=== PATIENT | female | born 1990 | race Caucasian/White ===

== ENCOUNTER 2018-08-18 00:20 | Emergency (ER) | payer OTHER ==
[2018-08-18] MEDS ORDERED: LIDOCAINE 1% MPF 5 ML VIAL ONE (01:24)
--- NOTE | 2018-08-18 04:26 | EDPHYS ---
Physician Documentation [facility] Name: Ayanna Pierre Age: 28 yrs Sex: Female : 1990 Arrival Date: 08/18/2018 Time: 00:26 Bed 15 Private MD: Marta Cooper K ED Physician Anatoliy Delgado HPI: 08/18 01:57 This 28 yrs old Female presents to ER via Ambulatory with complaints of rn abscess. 01:57 The patient presents with an abscess of the right axilla. Description: erythematous, rn swollen, warm. Onset: The symptoms/episode began/occurred 3 day(s) ago. Possible cause(s): unknown. Severity of symptoms: At their worst the symptoms were moderate, in the emergency department the symptoms are unchanged. The patient has not experienced similar symptoms in the past. The patient has not recently seen a physician. 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 - Social history:: Smoking status: Patient uses tobacco products, smokes one pack cigarettes per day. - Ebola Screening: : No symptoms or risks identified at this time. - Family history:: not pertinent. - Hospitalizations: : No recent hospitalization is reported. ROS: 01:57 Constitutional: Negative for fever, chills, and weight loss, Skin: + right axilla rn abscess Exam: 01:57 Constitutional: This is a well developed, well nourished patient who is awake, alert, rn and in no acute distress. Skin: Warm, dry, right axilla with a few small pustules, + central 2cm area of fluctuance and tenderness Vital Signs: 00:45 BP 116 / 73; Pulse 87; Resp 18; Temp 98.1; Pulse Ox 100% on R/A; Weight 54.43 kg (R); ak1 Height 5 ft. 5 in. (165.10 cm) (R); Pain 10/10; 01:50 BP 120 / 60; Pulse 78; Resp 18; Temp 97.2(O); Pulse Ox 99% on R/A; ea 00:45 Body Mass Index 19.97 (54.43 kg, 165.10 cm) ak1 Procedures: 01:57 I \T\ D: Incision and drainage was performed for an abscess of the right axilla. Prepped rn with Betadine, Anesthetized with 5 ml's 1% Lidocaine w/ Epi. Incised with #11 blade. Drained moderate amount purulent fluid. Packed with iodoform gauze, Dressing: sterile 4x4 gauze, the patient tolerated the procedure well. MDM: 00:55 Patient medically screened. rn 01:57 Differential diagnosis: abscess. Data reviewed: vital signs, nurses notes, and as a rn result, I will discharge patient. Counseling: I had a detailed discussion with the patient and/or guardian regarding: the historical points, exam findings, and any diagnostic results supporting the discharge/admit diagnosis, the need for outpatient follow up, to return to the emergency department if symptoms worsen or persist or if there are any questions or concerns that arise at home. Response to treatment: the patient's symptoms have mildly improved after treatment, and as a result, I will discharge patient. Special discussion: I discussed with the patient/guardian in detail that at this point there is no indication for admission to the hospital. It is understood, however, that if the symptoms persist or worsen the patient needs to return immediately for re-evaluation. 01:57 ED course: Instructions given about packing changes, abx given here since pharmacy rn closed.. 08/18 01:00 Order name: Incision \T\ Drainage Setup; Complete Time: :19 rn Administered Medications: Drug: [place] 10 mg-325 mg 1 tabs Route: PO; ea 02:03 Follow up: Response: No adverse reaction; Pain is decreased ea 01:43 Drug: Lidocaine (1 %) 1 vials {Note: medication adminitered by provider.} Volume: 5 ml; ea Route: Infiltration; 02:03 Follow up: Response: No adverse reaction ea 02:12 Drug: Clindamycin 300 mg Route: PO; ea 02:12 Follow up: Response: Medication administered at discharge. ea Disposition: 08/18/18 02:00 Discharged to Home. Impression: Cutaneous abscess of right axilla. - Condition is Stable. - Discharge Instructions: Skin Abscess, Incision and Drainage, Incision and Drainage, Care After. - Prescriptions for Clindamycin HCl 300 mg Oral Capsule - take 1 capsule by ORAL route every 6 hours for 10 days; 40 capsule. Tylenol- Codeine #3 300-30 mg Oral Tablet - take 1 tablet by ORAL route every 6 hours As needed; 15 tablet. - Medication Reconciliation Form, Thank You Letter, Antibiotic Education, Prescription Opioid Use form. - Follow up: Leland Mckeon MD; When: 2 - 3 days; Reason: Recheck today's complaints, Re-evaluation by your physician. - Problem is new. - Symptoms have improved. Signatures: Anatoliy Delgado MD MD rn Joan Cai RN RN ak1 Lisa Drew RN RN ea Corrections: (The following items were deleted from the chart) 02:16 02:00 08/18/2018 02:00 Discharged to Home. Impression: Cutaneous abscess of right ea axilla. Condition is Stable. Forms are Medication Reconciliation Form, Thank You Letter, Antibiotic Education, Prescription Opioid Use. Follow up: Leland Mckeon; When: 2 - 3 days; Reason: Recheck today's complaints, Re-evaluation by your physician. Problem is new. Symptoms have improved. rn 03:06 02:16 08/18/2018 02:00 Discharged to Home. Impression: Cutaneous abscess of right rn axilla. Condition is Stable. Discharge Instructions: Skin Abscess, Incision and Drainage, Incision and Drainage, Care After. Prescriptions for Clindamycin HCl 300 mg Oral Capsule - take 1 capsule by ORAL route every 6 hours for 10 days; 40 capsule. and Forms are Medication Reconciliation Form, Thank You Letter, Antibiotic Education, Prescription Opioid Use. Follow up: Leland Mckeon; When: 2 - 3 days; Reason: Recheck today's complaints, Re-evaluation by your physician. Problem is new. Symptoms have improved. ea
--- NOTE | 2018-08-18 04:26 | ER ---
Nurse's Notes [facility] Name: Ayanna Pierre Age: 28 yrs Sex: Female : 1990 Arrival Date: 08/18/2018 Time: 00:26 Bed 15 Private MD: Marta Cooper K Diagnosis: Cutaneous abscess of right axilla Presentation: 08/18 00:46 Presenting complaint: Patient states: multiple abscess under right arm x2 weeks. ak1 Transition of care: patient was not received from another setting of care. Onset of symptoms is unknown. Risk Assessment: Do you want to hurt yourself or someone else? Patient reports no desire to harm self or others. Initial Sepsis Screen: Does the patient meet any 2 criteria? No. Patient's initial sepsis screen is negative. Does the patient have a suspected source of infection? No. Patient's initial sepsis screen is negative. Care prior to arrival: None. 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 - Social history:: Smoking status: Patient uses tobacco products, smokes one pack cigarettes per day. - Ebola Screening: : No symptoms or risks identified at this time. - Family history:: not pertinent. - Hospitalizations: : No recent hospitalization is reported. Screenin:23 Abuse screen: Denies threats or abuse. Nutritional screening: No deficits noted. ea Tuberculosis screening: No symptoms or risk factors identified. Fall Risk None identified. Assessment: 01:10 General: Appears uncomfortable, Behavior is calm, cooperative, appropriate for age. ea Pain: Complains of pain in right armpit. Neuro: Level of Consciousness is awake, alert, obeys commands, Oriented to person, place, time, situation. Cardiovascular: Patient's skin is warm and dry. Respiratory: Airway is patent Respiratory effort is even, unlabored, Respiratory pattern is regular, symmetrical. GI: No signs and/or symptoms were reported involving the gastrointestinal system. Derm: Skin abscess noted to right armpit Skin is pink, warm \T\ dry. Abscess located on right axilla is red, is raised. 02:12 Reassessment: Patient and/or family updated on plan of care and expected duration. Pain ea level reassessed. Patient is alert, oriented x 3, equal unlabored respirations, skin warm/dry/pink. Discharge instruction given to patient, verbalized the understanding of instruction. Pt left ED ambulatory with significant other. Pt tolerating well. Vital Signs: 00:45 BP 116 / 73; Pulse 87; Resp 18; Temp 98.1; Pulse Ox 100% on R/A; Weight 54.43 kg (R); ak1 Height 5 ft. 5 in. (165.10 cm) (R); Pain 10/10; 01:50 BP 120 / 60; Pulse 78; Resp 18; Temp 97.2(O); Pulse Ox 99% on R/A; ea 00:45 Body Mass Index 19.97 (54.43 kg, 165.10 cm) ak1 ED Course: 00:26 Patient arrived in ED. do 00:26 Marta Cooper MD is Private Physician. do 00:46 Triage completed. ak1 00:47 Arm band placed on Patient placed in an exam room, on a stretcher, Patient notified of ak1 wait time. 00:54 Lisa Drew, JUJU is Primary Nurse. ea 00:55 Anatoliy Delgado MD is Attending Physician. rn 01:34 Patient has correct armband on for positive identification. Bed in low position. Call ea light in reach. Side rails up X2. 01:50 Assist provider with I \T\ D: of an abscess on right axilla Set up I\T\D tray. Performed by kelly Delgado MD Culture sent to lab. Wound packed. iodoform gauze, Dressing with 4X4s, Patient tolerated well. 02:00 Leland Mckeon MD is Referral Physician. rn 02:15 Patient did not have IV access during this emergency room visit. ea 03:05 Primary Nurse role handed off by Lisa Drew RN rn Administered Medications: 01:19 Drug: [place] 10 mg-325 mg 1 tabs Route: PO; ea 02:03 Follow up: Response: No adverse reaction; Pain is decreased ea 01:43 Drug: Lidocaine (1 %) 1 vials {Note: medication adminitered by provider.} Volume: 5 ml; ea Route: Infiltration; 02:03 Follow up: Response: No adverse reaction ea 02:12 Drug: Clindamycin 300 mg Route: PO; ea 02:12 Follow up: Response: Medication administered at discharge. ea Outcome: 02:00 Discharge ordered by . rn 02:15 Discharged to home ambulatory, with significant other. ea 02:15 Condition: good 02:15 Discharge instructions given to patient, Instructed on discharge instructions, follow up and referral plans. medication usage, Demonstrated understanding of instructions, follow-up care, medications. 02:16 Patient left the ED. ea 03:06 Patient left the ED. rn Signatures: Anatoliy Delgado MD MD rn Krenek, Amber, RN RN Sowmya Cortes Elena, RN RN ea
== END 2018-08-18 03:06 | disposition home or self-care (01) ==
LOC: ER 00:20
PROC: 0J9D0ZZ Drainage of Right Upper Arm Subcutaneous Tissue and Fascia, Open Approach (ICD-10-PCS; principal; 2018-08-18)
DX: L02.411 Cutaneous abscess of right axilla (principal); F17.210 Nicotine dependence, cigarettes, uncomplicated
CPT/HCPCS: 87070; 87077; 87186; 87205; 99283

== ENCOUNTER 2018-10-24 19:07 | Emergency (ER) | payer OTHER ==
[2018-10-24] MEDS ORDERED: METOCLOPRAMIDE 10 MG/2mL INJ ONE (20:10)
[2018-10-24] MEDS ORDERED: dexAMETHasone 10 MG/ML VIAL ONE (20:10)
[2018-10-24] MEDS ORDERED: KETOROLAC 30 MG/ML INJ ONE (20:10)
[2018-10-24] MEDS ORDERED: NA CHLORIDE 0.9% 1,000 ML ONE (20:10)
[2018-10-24] MEDS ORDERED: ONDANSETRON 4 MG/2 ML VIAL ONE (20:10)
[2018-10-24 20:41] LABS: Urine Blood NEGATIVE (NEG); Urine Glucose NEGATIVE (NEG); Urine Protein NEGATIVE (NEG)
[2018-10-24 20:58] LABS: Urine Bacteria >50 /HPF (<20); Urine Culture Reflex Order REFLEXED; Urine Mucus 2+ /HPF (NONE SEEN); Urine RBC <5 /HPF (NONE SEEN)
--- NOTE | 2018-10-24 22:45 | ER ---
Nurse's Notes [facility] Name: Ayanna Pierre Age: 28 yrs Sex: Female : 1990 Arrival Date: 10/24/2018 Time: 19:11 Bed 25 Private MD: Diagnosis: Migraine;Urinary tract infection, site not specified Presentation: 10/24 19:21 Presenting complaint: Patient states: migraine since yesterday, nausea started today. dm5 Pt states that she has had seizures in the past when she gets migraines. Pt states she has been having migraines since TBI in 2014. Transition of care: patient was not received from another setting of care. Onset of symptoms was October 23, 2018. Risk Assessment: Do you want to hurt yourself or someone else? Patient reports no desire to harm self or others. Initial Sepsis Screen: Does the patient meet any 2 criteria? No. Patient's initial sepsis screen is negative. Does the patient have a suspected source of infection? No. Patient's initial sepsis screen is negative. Care prior to arrival: None. 19:21 Method Of Arrival: Ambulatory dm5 19:21 Acuity: ELLEN 3 dm5 Triage Assessment: 19:25 Headache History: The patient has had previous headaches and this one is similar to dm5 previous episodes. 23:00 Pain: Also complains of no other associated symptoms. 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 - Social history:: Smoking status: Patient/guardian denies using tobacco. - Family history:: not pertinent. - Ebola Screening: : Patient negative for fever greater than or equal to 101.5 degrees Fahrenheit, and additional compatible Ebola Virus Disease symptoms Patient denies exposure to infectious person Patient denies travel to an Ebola-affected area in the 21 days before illness onset No symptoms or risks identified at this time. - Hospitalizations: : No recent hospitalization is reported. Screenin:00 Abuse screen: Denies threats or abuse. Denies injuries from another. Nutritional ca1 screening: No deficits noted. Tuberculosis screening: No symptoms or risk factors identified. Fall Risk IV access (20 points). Assessment: 20:00 General: Appears in no apparent distress. comfortable, Behavior is calm, cooperative, ca1 appropriate for age. Pain: Complains of pain in face and scalp Pain does not radiate. Pain currently is 8 out of 10 on a pain scale. Quality of pain is described as throbbing, Pain began 1 day ago. Neuro: Level of Consciousness is awake, alert, obeys commands, Oriented to person, place, time, situation, Appropriate for age. Cardiovascular: Heart tones S1 S2 present Capillary refill < 3 seconds Patient's skin is warm and dry. Respiratory: Airway is patent Respiratory effort is even, unlabored, Respiratory pattern is regular, symmetrical, Breath sounds are clear bilaterally. GI: Abdomen is flat, non-distended, Bowel sounds present X 4 quads. GI: Abd is soft and non tender X 4 quads. Reports normal bowel habits, vomiting. : No deficits noted. No signs and/or symptoms were reported regarding the genitourinary system. EENT: No deficits noted. No signs and/or symptoms were reported regarding the EENT system. Derm: Skin is intact, is healthy with good turgor, Skin is pink, warm \T\ dry. Musculoskeletal: Circulation, motion, and sensation intact. Capillary refill < 3 seconds. 21:42 Reassessment: Patient appears in no apparent distress at this time. No changes from jd3 previously documented assessment. Patient and/or family updated on plan of care and expected duration. Pain level reassessed. Patient is alert, oriented x 3, equal unlabored respirations, skin warm/dry/pink. medication infusing at ordered rate. 23:01 Reassessment: Patient appears in no apparent distress at this time. Patient and/or jd3 family updated on plan of care and expected duration. Pain level reassessed. Patient is alert, oriented x 3, equal unlabored respirations, skin warm/dry/pink. reported understanding of discharge instructions. Patient states feeling better. Vital Signs: 19:25 BP 124 / 82; Pulse 102; Resp 18; Temp 98.2; Pulse Ox 97% on R/A; Weight 63.5 kg; Height dm5 5 ft. 5 in. (165.10 cm); Pain 8/10; 23:03 BP 107 / 58; Pulse 76; Resp 16 S; Pulse Ox 100% on R/A; Pain 1/10; jd3 19:25 Body Mass Index 23.30 (63.50 kg, 165.10 cm) dm5 [place] Coma Score: 22:44 Eye Response: spontaneous(4). Verbal Response: oriented(5). Motor Response: obeys rn commands(6). Total: 15. ED Course: 19:11 Patient arrived in ED. cf2 19:22 Triage completed. dm5 19:26 Arm band placed on left wrist. Patient placed in waiting room. dm5 19:42 Magaly Boo, RN is Primary Nurse. ca1 19:42 Anatoliy Delgado MD is Attending Physician. rn 20:00 Patient has correct armband on for positive identification. Bed in low position. Call ca1 light in reach. Side rails up X2. Pulse ox on. NIBP on. Door closed. Noise minimized. Lights dimmed. Warm blanket given. 20:00 No provider procedures requiring assistance completed. Missed attempt(s): 22 gauge in ca1 left antecubital area. Bleeding controlled, band aid applied, catheter tip intact. 20:52 Missed attempt(s): 22 gauge in right antecubital area. Bleeding controlled, band aid jd3 applied, catheter tip intact. Missed attempt(s): 22 gauge in left wrist. Bleeding controlled, band aid applied, catheter tip intact. 23:01 IV discontinued, intact, bleeding controlled, No redness/swelling at site. Pressure jd3 dressing applied. Administered Medications: 21:10 Drug: NS 0.9% 1000 ml Route: IV; Rate: 1000 ml; Site: left antecubital; ca1 23:02 Follow up: Response: No adverse reaction; IV Status: Completed infusion; IV Intake: jd3 1000ml 21:10 Drug: Zofran 4 mg Route: IVP; Site: left antecubital; ca1 22:10 Follow up: Response: No adverse reaction jd3 21:12 Drug: TORadol - Ketorolac 15 mg Route: IVP; Site: left antecubital; ca1 22:12 Follow up: Response: No adverse reaction jd3 21:14 Drug: Reglan 10 mg Route: IVP; Site: left antecubital; ca1 22:10 Follow up: Response: No adverse reaction jd3 21:14 Drug: Decadron - Dexamethasone 10 mg Route: IVP; Site: left antecubital; ca1 22:10 Follow up: Response: No adverse reaction jd3 Intake: 23:02 IV: 1000ml; Total: 1000ml. jd3 Outcome: 22:45 Discharge ordered by . rn 23:00 Discharged to home ambulatory, with family. jd3 23:00 Condition: stable 23:00 Discharge instructions given to patient, Instructed on discharge instructions, follow up and referral plans. medication usage, Demonstrated understanding of instructions, follow-up care, medications, Prescriptions given X 1. 23:04 Patient left the ED. jd3 Signatures: Fara Melendrez, RN RN dm5 Anatoliy Delgado MD MD rn Davies, Jonathon, RN RN jMagaly Lopez RN RN ca1 Ashley Hendrickson cf2
--- NOTE | 2018-10-24 22:46 | EDPHYS ---
Physician Documentation [facility] Name: Ayanna Pierre Age: 28 yrs Sex: Female : 1990 Arrival Date: 10/24/2018 Time: 19:11 Bed 25 Private MD: ED Physician Anatoliy Delgado HPI: 10/24 20:06 This 28 yrs old Female presents to ER via Ambulatory with complaints of rn Headache, Nausea. 20:06 The patient complains of pain to the top of head and forehead. The patient describes rn the headache as aching. Onset: The symptoms/episode began/occurred 3 day(s) ago. Associated signs and symptoms: Pertinent positives: nausea, Pertinent negatives: altered mental status, fever, neck stiffness, rash, vision loss, weakness, vertigo. Severity of symptoms: At its worst the pain was moderate, "similar to past headaches". The patient has not experienced similar symptoms in the past. The patient has not recently seen a physician. Reports headache, similar to previous migraines, lasting longer than normal, no trauma or fever, no focal neuro complaints. No neck stiffness.. 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 - Social history:: Smoking status: Patient/guardian denies using tobacco. - Family history:: not pertinent. - Ebola Screening: : Patient negative for fever greater than or equal to 101.5 degrees Fahrenheit, and additional compatible Ebola Virus Disease symptoms Patient denies exposure to infectious person Patient denies travel to an Ebola-affected area in the 21 days before illness onset No symptoms or risks identified at this time. - Hospitalizations: : No recent hospitalization is reported. ROS: 20:06 Constitutional: Negative for fever, chills, and weight loss, Eyes: Negative for injury, rn pain, redness, and discharge, Neck: Negative for injury, pain, and swelling, Cardiovascular: Negative for chest pain, palpitations, and edema, Respiratory: Negative for shortness of breath, cough, wheezing, and pleuritic chest pain, Abdomen/GI: Negative for abdominal pain, vomiting, diarrhea, and constipation, MS/Extremity: Negative for injury and deformity, Skin: Negative for injury, rash, and discoloration, Neuro: Negative for weakness, numbness, tingling, and seizure. Exam: 20:06 Constitutional: This is a well developed, well nourished patient who is awake, alert, rn and in no acute distress. Ambulatory to room and bathroom without difficulty or assistance Head/Face: Normocephalic, atraumatic. Eyes: Pupils equal round and reactive to light, extra-ocular motions intact. Lids and lashes normal. Conjunctiva and sclera are non-icteric and not injected. Cornea within normal limits. Periorbital areas with no swelling, redness, or edema. Neck: Trachea midline, no thyromegaly or masses palpated, and no cervical lymphadenopathy. Supple, full range of motion without nuchal rigidity, or vertebral point tenderness. No Meningismus. Cardiovascular: Regular rate and rhythm. No pulse deficits. Respiratory: No increased work of breathing, no retractions or nasal flaring. Abdomen/GI: soft, non-tender Skin: Warm, dry with normal turgor. Normal color with no rashes, no lesions, and no evidence of cellulitis. MS/ Extremity: Pulses equal, no cyanosis. Neurovascular intact. Full, normal range of motion. Equal circumference. Neuro: Awake and alert, GCS 15, oriented to person, place, time, and situation. Cranial nerves II-XII grossly intact. Motor strength 5/5 in all extremities. Sensory grossly intact. Cerebellar exam normal. Normal gait. Vital Signs: 19:25 BP 124 / 82; Pulse 102; Resp 18; Temp 98.2; Pulse Ox 97% on R/A; Weight 63.5 kg; Height dm5 5 ft. 5 in. (165.10 cm); Pain 8/10; 23:03 BP 107 / 58; Pulse 76; Resp 16 S; Pulse Ox 100% on R/A; Pain 1/10; jd3 19:25 Body Mass Index 23.30 (63.50 kg, 165.10 cm) dm5 Ginette Coma Score: 22:44 Eye Response: spontaneous(4). Verbal Response: oriented(5). Motor Response: obeys rn commands(6). Total: 15. MDM: 19:43 Patient medically screened. rn 22:44 Differential diagnosis: migraine, vasomotor headache, UTI. Data reviewed: vital signs, rn nurses notes, lab test result(s), and as a result, I will discharge patient. Counseling: I had a detailed discussion with the patient and/or guardian regarding: the historical points, exam findings, and any diagnostic results supporting the discharge/admit diagnosis, lab results, the need for outpatient follow up, to return to the emergency department if symptoms worsen or persist or if there are any questions or concerns that arise at home. Response to treatment: the patient's symptoms have markedly improved after treatment, and as a result, I will discharge patient. Special discussion: I discussed with the patient/guardian in detail that at this point there is no indication for admission to the hospital. It is understood, however, that if the symptoms persist or worsen the patient needs to return immediately for re-evaluation. ED course: Pt states increased urinary frequency, will treat for UTI, may be making her headache worse.. 10/24 19:59 Order name: Urine Microscopic Only 10/24 20:19 Order name: Urine Dipstick--Ancillary (enter results) [facility] 10/24 20:19 Order name: Urine --Ancillary (enter results) [facility] 10/24 20:42 Order name: Urine --Ancillary; Complete Time: 21:44 [facility] 10/24 20:42 Order name: Urine Dipstick-Ancillary; Complete Time: 21:44 [facility] 10/24 20:58 Order name: Urine Microscopic Only; Complete Time: 21:44 [facility] 10/24 19:59 Order name: IV Start; Complete Time: 21:15 rn 10/24 19:59 Order name: Urine Test (obtain specimen); Complete Time: 20:27 rn 10/24 19:59 Order name: Urine Dipstick-Ancillary (obtain specimen); Complete Time: 20:28 rn Administered Medications: 21:10 Drug: NS 0.9% 1000 ml Route: IV; Rate: 1000 ml; Site: left antecubital; ca1 23:02 Follow up: Response: No adverse reaction; IV Status: Completed infusion; IV Intake: jd3 1000ml 21:10 Drug: Zofran 4 mg Route: IVP; Site: left antecubital; ca1 22:10 Follow up: Response: No adverse reaction jd3 21:12 Drug: TORadol - Ketorolac 15 mg Route: IVP; Site: left antecubital; ca1 22:12 Follow up: Response: No adverse reaction jd3 21:14 Drug: Reglan 10 mg Route: IVP; Site: left antecubital; ca1 22:10 Follow up: Response: No adverse reaction jd3 21:14 Drug: Decadron - Dexamethasone 10 mg Route: IVP; Site: left antecubital; ca1 22:10 Follow up: Response: No adverse reaction jd3 Disposition: 10/24/18 22:45 Discharged to Home. Impression: Migraine, Urinary tract infection, site not specified. - Condition is Stable. - Discharge Instructions: Migraine Headache, Urinary Tract Infection, Adult. - Prescriptions for Macrobid 100 mg Oral Capsule - take 1 capsule by ORAL route every 12 hours for 7 days; 14 capsule. - Medication Reconciliation Form, Thank You Letter, Antibiotic Education, Prescription Opioid Use form. - Follow up: Private Physician; When: As needed; Reason: Recheck today's complaints, Re-evaluation by your physician. - Problem is new. - Symptoms have improved. Signatures: Dispatcher [employer] EDMS Fara Melendrez RN RN dm5 Anatoliy Delgado MD MD rn Davies, Jonathon, RN RN jd3 Ema, Magaly RN RN ca1 Corrections: (The following items were deleted from the chart) 23:04 22:45 10/24/2018 22:45 Discharged to Home. Impression: Migraine; Urinary tract jd3 infection, site not specified. Condition is Stable. Forms are Medication Reconciliation Form, Thank You Letter, Antibiotic Education, Prescription Opioid Use. Follow up: Private Physician; When: As needed; Reason: Recheck today's complaints, Re-evaluation by your physician. Problem is new. Symptoms have improved. rn
[2018-10-24 23:29] VITALS: TEMP 98.2
[2018-10-24 23:30] VITALS: BP 107/58; O2SAT 100
== END 2018-10-24 23:04 | disposition home or self-care (01) ==
LOC: ER 19:07
DX: G43.909 Migraine, unspecified, not intractable, without status migrainosus (principal); N39.0 Urinary tract infection, site not specified; F41.8 Other specified anxiety disorders
CPT/HCPCS: 96361; 87088; 87086; 81025; 96375; 96374; 99283; J2765; J1100; J7030; J2405; 81003; 81015

== ENCOUNTER 2019-09-24 10:07 | Emergency (ER) | payer OTHER, SELFPAY ==
[2019-09-24] MEDS ORDERED: HYDROCODONE/APAP 10/325 TAB ONE (10:51)
--- NOTE | 2019-09-24 11:51 | EDPHYS ---
Physician Documentation [facility] Name: Ayanna Pierre Age: 29 yrs Sex: Female : 1990 Arrival Date: 09/24/2019 Time: 10:11 Bed 6 Private MD: ED Physician Michael Quiroz HPI: 09/23 10:37 This 29 yrs old Female presents to ER via Wheelchair with complaints of Fall pm1 Injury, Foot Injury. 10:37 Details of fall: The patient fell from an upright position, while walking. Onset: The pm1 symptoms/episode began/occurred last night. Associated injuries: The patient sustained left lateral ankle and dorsum of left foot, pain and swelling. Severity of symptoms: in the emergency department the symptoms are unchanged. The patient has not experienced similar symptoms in the past. The patient has not recently seen a physician. 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 - Social history:: Smoking status: Patient denies any tobacco usage or history of. ROS: 10:37 Constitutional: Negative for fever, chills, and weight loss, Cardiovascular: Negative pm1 for chest pain, palpitations, and edema, Respiratory: Negative for shortness of breath, cough, wheezing, and pleuritic chest pain, Abdomen/GI: Negative for abdominal pain, nausea, vomiting, diarrhea, and constipation, Back: Negative for injury and pain. 10:37 Skin: Negative for injury, rash, and discoloration. 10:37 MS/extremity: Positive for pain, swelling, of the dorsum of left foot and left lateral ankle, Negative for decreased range of motion, deformity. Exam: 10:37 Constitutional: This is a well developed, well nourished patient who is awake, alert, pm1 and in no acute distress. 10:37 Back: No spinal tenderness. No costovertebral tenderness. Full range of motion. 10:37 Cardiovascular: Exam negative for acute changes, Rate: normal, Rhythm: regular, Pulses: no pulse deficits are appreciated. 10:37 Respiratory: Exam negative for acute changes, respiratory distress, shortness of breath. 10:37 Musculoskeletal/extremity: Extremities: grossly normal except: noted in the left lateral ankle: swelling, tenderness, There is no evidence of laceration, puncture, noted in the dorsum of left foot: ecchymosis, swelling, tenderness, no evidence of decreased ROM, deformity, laceration, puncture. 10:37 Skin: Appearance: normal except for affected area, swelling and ecchymosis to dorsum of left foot and swelling to lateral ankle over the malleolus. . 10:37 Neuro: Exam negative for acute changes, Orientation: is normal, Motor: is normal, moves all fours. Vital Signs: 10:33 BP 127 / 88; Pulse 106; Resp 17; Temp 98.4(O); Pulse Ox 98% on R/A; Pain 10/10; ss 12:00 BP 118 / 78; Pulse 89; Resp 16; Pulse Ox 100% on R/A; hb 13:00 BP 124 / 76; Pulse 82; Resp 16; Pulse Ox 99% on R/A; Pain 9/10; hb 14:21 Temp 97.9(TE); ph MDM: 10:23 Patient medically screened. pm1 11:49 Data reviewed: vital signs. Data interpreted: Pulse oximetry: on room air is 98 %. pm1 Interpretation: normal. Counseling: I had a detailed discussion with the patient and/or guardian regarding: the historical points, exam findings, and any diagnostic results supporting the discharge/admit diagnosis, radiology results, the need for outpatient follow up, for definitive care, a orthopedic surgeon, to return to the emergency department if symptoms worsen or persist or if there are any questions or concerns that arise at home. 12:56 Physician consultation: Daryn Jordan MD was called at 12:57, was contacted at pm1 12:57, regarding consult, patient's condition, CT Foot and ankle, splint, and have patient call to setup up an appointment. 14:03 Counseling: I had a detailed discussion with the patient and/or guardian regarding: the pm1 historical points, exam findings, and any diagnostic results supporting the discharge/admit diagnosis, radiology results, the need for outpatient follow up, for definitive care, a orthopedic surgeon, to return to the emergency department if symptoms worsen or persist or if there are any questions or concerns that arise at home. 09/23 10:33 Order name: Foot Left 3 View XRAY; Complete Time: 12:41 pm1 09/23 10:33 Order name: Ankle Left 3 View XRAY; Complete Time: 12:41 pm1 09/23 13:14 Order name: Lower Ext Wo Con W/ Mpr; Complete Time: 13:59 EDMS 09/23 10:33 Order name: Ice pack; Complete Time: 10:37 pm1 09/23 11:42 Order name: Splint - Ankle: Orthoglass: Stirrup; Complete Time: 13:01 pm1 09/23 11:42 Order name: Splint - Ankle: Posterior; Complete Time: 13:01 pm1 09/23 11:42 Order name: Crutches; Complete Time: 13:01 pm1 Administered Medications: 10:47 Drug: [place] 10 mg-325 mg 1 tabs Route: PO; hb 11:35 Follow up: Response: No adverse reaction hb 13:17 Drug: [place] 5 mg-325 mg 1 tabs Route: PO; ss 14:21 Follow up: Response: No adverse reaction; RASS: Alert and Calm (0) ph Disposition: 09/24/19 14:10 Discharged to Home. Impression: Fracture of unspecified metatarsal bone(s), left foot - Lisfranc fracture base of second metatarsal and nondisplaced fracture base of the third metatarsal, Nondisplaced fracture of lateral malleolus of left fibula, Left intrarticular fracture anterolateral tibial plafond. - Condition is Stable. - Discharge Instructions: Ankle Fracture, Cast or Splint Care, Adult, Crutch Use, Metatarsal Fracture. - Prescriptions for Tylenol- Codeine #3 300-30 mg Oral Tablet - take 2 tablets by ORAL route every 6 hours As needed; 20 tablet. - Medication Reconciliation Form, Thank You Letter, Antibiotic Education, Prescription Opioid Use form. - Follow up: Daryn Jordan MD; When: 2 - 3 days; Reason: Recheck today's complaints, Continuance of care, Re-evaluation by your physician. - Problem is new. - Symptoms have improved. Addendum: 09/26/2019 08:10 Co-signature as Attending Physician, Michael Quiroz MD I agree with the assessment and c walsh plan of care. Signatures: Dispatcher [employer] EDMS Michael Quiroz MD MD cha Smirch, Shelby, JUJU RN Salma Norman RN RN ph [place], MIRROR INSPECTOR MIRROR INSPECTOR pm1 Nichelle Wharton RN RN Corrections: (The following items were deleted from the chart) 08 11:52 11:50 09/24/2019 11:50 Discharged to Home. Impression: Displaced fracture of medial pm1 malleolus of left tibia. Condition is Stable. Forms are Medication Reconciliation Form, Thank You Letter, Antibiotic Education, Prescription Opioid Use. Follow up: Emergency Department; When: As needed; Reason: Worsening of condition. Follow up: Private Physician; When: 2 - 3 days; Reason: Recheck today's complaints, Continuance of care, Re-evaluation by your physician. Problem is new. Symptoms have improved. pm1 12:44 11:52 09/24/2019 11:50 Discharged to Home. Impression: Displaced fracture of medial pm1 malleolus of left tibia. Condition is Stable. Discharge Instructions: Ankle Fracture, Crutch Use. Prescriptions for Tylenol-Codeine #3 300-30 mg Oral Tablet - take 2 tablets by ORAL route every 6 hours As needed; 20 tablet. and Forms are Medication Reconciliation Form, Thank You Letter, Antibiotic Education, Prescription Opioid Use. Follow up: Emergency Department; When: As needed; Reason: Worsening of condition. Follow up: Private Physician; When: 2 - 3 days; Reason: Recheck today's complaints, Continuance of care, Re-evaluation by your physician. Follow up: Daryn Jordan; When: 2 - 3 days; Reason: Recheck today's complaints, Continuance of care, Re-evaluation by your physician. Problem is new. Symptoms have improved. pm1 12:56 12:44 09/24/2019 11:50 Discharged to Home. Impression: Fracture of unspecified pm1 metatarsal bone(s), left foot - Lisfranc cracture to the base of second metatarsal; Nondisplaced fracture of lateral malleolus of left fibula. Condition is Stable. Discharge Instructions: Ankle Fracture, Crutch Use, Cast or Splint Care, Adult. Prescriptions for Tylenol-Codeine #3 300-30 mg Oral Tablet - take 2 tablets by ORAL route every 6 hours As needed; 20 tablet. and Forms are Medication Reconciliation Form, Thank You Letter, Antibiotic Education, Prescription Opioid Use. Follow up: Emergency Department; When: As needed; Reason: Worsening of condition. Follow up: Private Physician; When: 2 - 3 days; Reason: Recheck today's complaints, Continuance of care, Re-evaluation by your physician. Follow up: Daryn Jordan; When: 2 - 3 days; Reason: Recheck today's complaints, Continuance of care, Re-evaluation by your physician. Problem is new. Symptoms have improved. pm1 13:14 13:03 CT LEFT ANKLE WO CONTRAST ordered. EDWI EDMS 13:15 13:03 CT LEFT FOOT WO CONTRAST ordered. [facility] EDMS 14:04 12:56 Physician consultation: Daryn Jordan MD was called at 12:57, was contacted at pm1 12:57, regarding consult, patient's condition, CT Foot and ankle, splint, and have patient call to step up an appointment, pm1 14:21 14:10 09/24/2019 14:10 Discharged to Home. Impression: Fracture of unspecified ph metatarsal bone(s), left foot - Lisfranc fracture base of second metatarsal and nondisplaced fracture base of the third metatarsalNondisplaced fracture of lateral malleolus of left fibula; Left intrarticular fracture anterolateral tibial plafond. Condition is Stable. Prescriptions for Tylenol-Codeine #3 300-30 mg Oral Tablet - take 2 tablets by ORAL route every 6 hours As needed; 20 tablet. and Forms are Medication Reconciliation Form, Thank You Letter, Antibiotic Education, Prescription Opioid Use. Follow up: Daryn Jordan; When: 2 - 3 days; Reason: Recheck today's complaints, Continuance of care, Re-evaluation by your physician. Problem is new. Symptoms have improved. pm1
--- NOTE | 2019-09-24 11:51 | ER ---
Nurse's Notes [facility] Name: Ayanna Pierre Age: 29 yrs Sex: Female : 1990 Arrival Date: 09/24/2019 Time: 10:11 Bed 6 Private MD: Diagnosis: Nondisplaced fracture of lateral malleolus of left fibula;Fracture of unspecified metatarsal bone(s), left foot-Lisfranc fracture base of second metatarsal and nondisplaced fracture base of the third metatarsal;Left intrarticular fracture anterolateral tibial plafond Presentation: 09/23 10:33 Chief complaint: Patient states: L ankle pain with bruising and swelling after tripping ss while walking last night. Coronavirus screen: Client denies travel out of the [place] in the last 14 days. At this time, the client does not indicate any symptoms associated with coronavirus-19. Ebola Screen: Patient denies exposure to infectious person. Patient denies travel to an Ebola-affected area in the 21 days before illness onset. Initial Sepsis Screen: Does the patient meet any 2 criteria? No. Patient's initial sepsis screen is negative. Does the patient have a suspected source of infection? No. Patient's initial sepsis screen is negative. Risk Assessment: Do you want to hurt yourself or someone else? Patient reports no desire to harm self or others. Onset of symptoms was September 23, 2019. 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 - Social history:: Smoking status: Patient denies any tobacco usage or history of. Screenin:48 Abuse screen: Denies threats or abuse. Denies injuries from another. Nutritional hb screening: No deficits noted. Tuberculosis screening: No symptoms or risk factors identified. Fall Risk None identified. Assessment: 10:40 General: Appears in no apparent distress. Behavior is calm, cooperative. Pain: Pain hb currently is 10 out of 10 on a pain scale. Neuro: Level of Consciousness is awake, alert, obeys commands, Oriented to person, place, time, situation. Cardiovascular: Patient's skin is warm and dry. Respiratory: Respiratory effort is even, unlabored, Respiratory pattern is regular, symmetrical. GI: No signs and/or symptoms were reported involving the gastrointestinal system. : No signs and/or symptoms were reported regarding the genitourinary system. EENT: No signs and/or symptoms were reported regarding the EENT system. Derm: Skin is pink, warm \T\ dry. Musculoskeletal: swelling and bruising noted to right ankle and top of right foot, pt reports right ankle and foot pain 10/10. 12:00 Reassessment: Patient appears in no apparent distress at this time. Patient and/or hb family updated on plan of care and expected duration. Pain level reassessed. Patient is alert, oriented x 3, equal unlabored respirations, skin warm/dry/pink. 13:12 Reassessment: Assisted patient to restroom VIA wheelchair. Patient back in bed awaiting ss additional imaging. 13:17 Reassessment: coke and water given to patient per request. ss 13:52 Reassessment: Patient appears in no apparent distress at this time. Patient and/or hb family updated on plan of care and expected duration. Pain level reassessed. Patient is alert, oriented x 3, equal unlabored respirations, skin warm/dry/pink. Vital Signs: 10:33 BP 127 / 88; Pulse 106; Resp 17; Temp 98.4(O); Pulse Ox 98% on R/A; Pain 10/10; ss 12:00 BP 118 / 78; Pulse 89; Resp 16; Pulse Ox 100% on R/A; hb 13:00 BP 124 / 76; Pulse 82; Resp 16; Pulse Ox 99% on R/A; Pain 9/10; hb 14:21 Temp 97.9(TE); ph ED Course: 10:11 Patient arrived in ED. mr 10:17 [place] NP is PHCP. pm1 10:17 Michael Quiroz MD is Attending Physician. pm1 10:27 Nichelle Wharton, JUJU is Primary Nurse. hb 10:35 Triage completed. ss 10:37 Arm band placed on right wrist. ss 10:48 Patient has correct armband on for positive identification. Bed in low position. hb 10:53 Awaiting for x-ray. sv 11:34 Foot Left 3 View XRAY In Process Unspecified. EDMS 11:34 Ankle Left 3 View XRAY In Process Unspecified. EDMS 11:51 Daryn Jordan MD is Referral Physician. pm1 13:00 Orthoglass splint: Posterior short lleg splint applied on left leg. stirrup splint jb1 applied on left leg. Pedal pulse present and within normal limits before and after application of splint. Capillary refill was one second before and after application of splint. 13:43 CT completed. Patient tolerated procedure well. Patient moved back from CT. eh 13:44 Lower Ext Wo Con W/ Mpr In Process Unspecified. EDMS 14:09 Daryn Jordan MD is Referral Physician. pm1 14:20 No provider procedures requiring assistance completed. Patient did not have IV access ph during this emergency room visit. Administered Medications: 10:47 Drug: [place] 10 mg-325 mg 1 tabs Route: PO; hb 11:35 Follow up: Response: No adverse reaction hb 13:17 Drug: [place] 5 mg-325 mg 1 tabs Route: PO; ss 14:21 Follow up: Response: No adverse reaction; RASS: Alert and Calm (0) ph Outcome: 11:50 Discharge ordered by MD. pm1 14:10 Discharge ordered by MD. pm1 14:20 Discharged to home ambulatory, with crutches. ph 14:20 Condition: good 14:20 Discharge instructions given to patient, Instructed on discharge instructions, follow up and referral plans. medication usage, Demonstrated understanding of instructions, follow-up care, medications, Prescriptions given X 1. 14:21 Patient left the ED. ph Signatures: Dispatcher [employer] EDMS Brandon Chávez jb Jaylin Fontanez RN RN Dolly Madsen mr GildaOrtega Diana Judd RN RN Salma Norman RN RN [place], ALONSO COSMETIC MANAGER pm1 Nichelle Wharton RN RN hb Corrections: (The following items were deleted from the chart) 13:34 13:32 Orthoglass splint: Posterior short lleg splint applied on jb1 jb1
--- NOTE | 2019-09-24 12:29 | RAD REPORT ---
EXAM DESCRIPTION: RAD - Ankle Left 3 View - 09/24/2019 11:34 am CLINICAL HISTORY: PAIN COMPARISON: Foot Left 3 View dated 09/24/2019 FINDINGS: Soft tissue swelling is seen along the lateral malleolus. No acute ankle fracture.
--- NOTE | 2019-09-24 12:36 | RAD REPORT ---
EXAM DESCRIPTION: RAD - Foot Left 3 View - 09/24/2019 11:34 am CLINICAL HISTORY: PAIN Trauma, pain COMPARISON: No comparisons FINDINGS: Transverse fracture is seen involving the base of the second metatarsal. There is widening noted in the region of the base of the first and second metatarsals and cuneiforms. Soft tissue swel ling is seen along the dorsum the foot. The combination of factors likely indicates Lisfranc fracture /injury. IMPRESSION: Lisfranc fracture/injury is present. Findings were discussed with [place] in the ER 09/24/2019 12:30 p.m. by telephone.
[2019-09-24] MEDS ORDERED: HYDROCODONE/APAP 5/325 MG TAB ONE (13:25)
--- NOTE | 2019-09-24 13:58 | RAD REPORT ---
EXAM DESCRIPTION: CT - Lower Ext Wo Con W/ Mpr - 09/24/2019 1:44 pm CLINICAL HISTORY: Lisfranc fx, nondisplaced L lateral malleolus fx COMPARISON: No comparisons FINDINGS: Nondisplaced fracture is seen involving the distal fibula, transverse in orientation with adjacent moderate soft tissue swelling. There is a minimally displaced oblique fracture involving the anterior lateral tibial plafond extendi ng to the articular surface of the tibiotalar joint. Mildly comminuted fracture involves the base of the second metatarsal with mild widening of the inter space between the base of the first and second metatarsal. Nondisplaced fracture also seen base of th e third metatarsal. Small subtle avulsion fracture also seen along the dorsal aspect of the talus. Widening of the posterior syndesmosis identified to 6 mm likely related to syndesmotic injury. All CT scans are performed using dose optimization technique as appropriate and may include automated exposure control or mA/KV adjustment according to patient size. IMPRESSION: Fractures involve the base of second third metatarsals with mild widening of the intersp milton between the base of the first and second metatarsals suspicious for Lisfranc fracture/injury. Fol lowup MR imaging could be performed to assess the integrity of the Lisfranc ligament. Nondisplaced transverse fracture distal fibula. Intraarticular fracture anterolateral tibial plafond.
[2019-09-24 14:34] VITALS: BP 124/76; O2SAT 99
[2019-09-24 14:35] VITALS: TEMP 97.9
== END 2019-09-24 14:21 | disposition home or self-care (01) ==
LOC: ER 10:07
PROC: 2W3RX1Z Immobilization of Left Lower Leg using Splint (ICD-10-PCS; principal; 2019-09-24)
DX: S92.302A Fracture of unspecified metatarsal bone(s), left foot, initial encounter for closed fracture (principal); S92.325A Nondisplaced fracture of second metatarsal bone, left foot, initial encounter for closed fracture; S92.335A Nondisplaced fracture of third metatarsal bone, left foot, initial encounter for closed fracture; S82.65XA Nondisplaced fracture of lateral malleolus of left fibula, initial encounter for closed fracture; S82.292A Other fracture of shaft of left tibia, initial encounter for closed fracture; W19.XXXA Unspecified fall, initial encounter; Y93.01 Activity, walking, marching and hiking; Y92.9 Unspecified place or not applicable; Z87.820 Personal history of traumatic brain injury
CPT/HCPCS: 73700; 76377; 99284

== ENCOUNTER 2019-12-07 15:13 | Emergency (ER) | payer SELFPAY ==
[2019-12-07] MEDS ORDERED: SMZ./TMP. 800/160 MG TABLET ONE (16:03)
[2019-12-07] MEDS ORDERED: LIDOCAINE 1% MPF 5 ML VIAL ONE (16:03)
--- NOTE | 2019-12-07 16:11 | ER ---
[facility] Name: Ayanna Pierre Age: 29 yrs Sex: Female : 1990 Arrival Date: 12/07/2019 Time: 15:16 Bed 7 Private MD: Diagnosis: Cutaneous abscess of head [any part, except face]-right ear lobe Presentation: 12/06 15:19 Chief complaint: Patient states: Abscess and pain to right ear lobe for 2 days, no ll1 drainage at this time. No fever. Coronavirus screen: Client denies travel out of the [place] in the last 14 days. At this time, the client does not indicate any symptoms associated with coronavirus-19. Ebola Screen: Patient denies travel to an Ebola-affected area in the 21 days before illness onset. Initial Sepsis Screen: Does the patient meet any 2 criteria? HR > 90 bpm. No. Patient's initial sepsis screen is negative. Does the patient have a suspected source of infection? Yes: Skin breakdown/wound. Risk Assessment: Do you want to hurt yourself or someone else? Patient reports no desire to harm self or others. Onset of symptoms was December 06, 2019. 15:19 Method Of Arrival: Ambulatory ll1 15:19 Acuity: ELLEN 4 ll1 Historical: - Allergies: 15:19 No Known Drug Allergies; ll1 - PMHx: 15:19 Migraines; PTSD; traumatic brain injury; Depression; Anxiety; ll1 - PSHx: 15:19 D\T\C; Tubal ligation; ll1 - Immunization history:: Flu vaccine is not up to date. - Social history:: Smoking status: Reported history of juuling and/or vaping. Patient denies any tobacco usage or history of. Screenin:40 Abuse screen: Denies threats or abuse. Nutritional screening: No deficits noted. vg1 Tuberculosis screening: No symptoms or risk factors identified. Fall Risk No fall in past 12 months (0 pts). No secondary diagnosis (0 pts). No IV (0 pts). Ambulatory Aid- None/Bed Rest/Nurse Assist (0 pts). Gait- Normal/Bed Rest/Wheelchair (0 pts) Mental Status- Oriented to own ability (0 pts). Total Humphrey Fall Scale indicates No Risk (0-24 pts). Assessment: 15:40 General: Appears in no apparent distress. Behavior is calm, cooperative. Pain: vg1 Complains of pain in right ear lobe Pain currently is 8 out of 10 on a pain scale. Neuro: Level of Consciousness is awake, alert, obeys commands, Oriented to person, place, time, situation. Cardiovascular: Patient's skin is warm and dry. Respiratory: Airway is patent Respiratory effort is even, unlabored, Respiratory pattern is regular, symmetrical. GI: No signs and/or symptoms were reported involving the gastrointestinal system. : No signs and/or symptoms were reported regarding the genitourinary system. EENT: abscess on right ear lobe, redness and warm noted. . Derm: Abscess located on right ear lobe is dime sized, has no drainage, is red, is raised. Vital Signs: 15:19 BP 120 / 87; Pulse 95; Resp 16; Temp 98.3; Pulse Ox 98% ; Weight 65.77 kg; Height 5 ft. ll1 5 in. (165.10 cm); Pain 8/10; 15:19 Body Mass Index 24.13 (65.77 kg, 165.10 cm) ll1 ED Course: 15:16 Patient arrived in ED. mr 15:19 Arm band placed on Patient placed in an exam room, on a stretcher. ll1 15:21 Triage completed. ll1 15:[address] [facility] kb 15:21 Daniela Valverde MD is Attending Physician. kb 15:31 Luh Carroll, RN is Primary Nurse. sv 15:40 Patient has correct armband on for positive identification. Bed in low position. Call vg1 light in reach. Door closed. 16:05 Assist provider with I \T\ D: of an abscess on right ear lobe. Set up I\T\D tray. Performed vg 1 by Tarah SUMNER Dressing with band-aid Patient tolerated poorly. 16:20 Patient did not have IV access during this emergency room visit. vg1 Administered Medications: 15:50 Drug: Bactrim (160 mg-800 mg (DS) 1 tablet Route: PO; vg1 18:35 Follow up: Response: No adverse reaction vg1 16:05 Drug: Lidocaine (1 %) 1 vials {Note: Given to Tarah GUPTA for procedure..} Volume: 5 ml; vg1 Route: Infiltration; 16:05 Follow up: Response: No adverse reaction vg1 16:11 Drug: Tylenol 1000 mg Route: PO; vg1 18:35 Follow up: Response: Medication administered at discharge. vg1 16:11 Drug: Ibuprofen 600 mg Route: PO; vg1 18:35 Follow up: Response: Medication administered at discharge. vg1 Outcome: 16:11 Discharge ordered by . brooke 16:20 Discharged to home ambulatory. vg1 16:20 Condition: good 16:20 Discharge instructions given to patient, Instructed on discharge instructions, follow up and referral plans. medication usage, Demonstrated understanding of instructions, follow-up care, medications, Prescriptions given X 1. 16:24 Patient left the ED. vg1 Signatures: Tarah Way, JOURNEYMAN PRESS OPERATOR-C JOURNEYMAN PRESS OPERATOR-Jaylin Guerrero, RN RN Dolly Ly Victoria RN RN vg1 Yvette Sullivan RN RN ll1
--- NOTE | 2019-12-07 16:11 | EDPHYS ---
Physician Documentation [facility] Name: Ayanna Pierre Age: 29 yrs Sex: Female : 1990 Arrival Date: 12/07/2019 Time: 15:16 Bed 7 Private MD: ED Physician Daniela Valverde HPI: 12/06 15:35 This 29 yrs old Female presents to ER via Ambulatory with complaints of kb Abscess. 15:35 The patient presents with an abscess of the right ear lobe. Description: erythematous, kb swollen, warm. Onset: The symptoms/episode began/occurred yesterday. Possible cause(s): unknown. Associated signs and symptoms: Pertinent positives: erythema, swelling, Pertinent negatives: discharge, drainage, foreign body sensation, fever, headache, nausea, swelling, vomiting. Modifying factors: the symptoms are alleviated by nothing, the symptoms are aggravated by sitting, touching. Severity of symptoms: At their worst the symptoms were moderate, in the emergency department the symptoms are unchanged. The patient has not experienced similar symptoms in the past. The patient has not recently seen a physician. Historical: - Allergies: 15:19 No Known Drug Allergies; ll1 - PMHx: 15:19 Migraines; PTSD; traumatic brain injury; Depression; Anxiety; ll1 - PSHx: 15:19 D\T\C; Tubal ligation; ll1 - Immunization history:: Flu vaccine is not up to date. - Social history:: Smoking status: Reported history of juuling and/or vaping. Patient denies any tobacco usage or history of. ROS: 15:35 Constitutional: Negative for fever, chills, and weight loss, Cardiovascular: Negative kb for chest pain, palpitations, and edema, Respiratory: Negative for shortness of breath, cough, wheezing, and pleuritic chest pain, Abdomen/GI: Negative for abdominal pain, nausea, vomiting, diarrhea, and constipation, MS/Extremity: Negative for injury and deformity, Neuro: Negative for headache, weakness, numbness, tingling, and seizure. 15:35 Skin: Positive for abscess, Negative for abrasions, avulsion, burn, cellulitis, diaphoresis, discoloration, ecchymosis, hematoma, jaundice, laceration(s), lesions, pallor, puncture, rash, ulceration. Exam: 15:35 Constitutional: This is a well developed, well nourished patient who is awake, alert, kb and in no acute distress. Head/Face: Normocephalic, atraumatic. Chest/axilla: Normal chest wall appearance and motion. Nontender with no deformity. No lesions are appreciated. Cardiovascular: Regular rate and rhythm with a normal S1 and S2. No gallops, murmurs, or rubs. Normal PMI, no JVD. No pulse deficits. Respiratory: Lungs have equal breath sounds bilaterally, clear to auscultation and percussion. No rales, rhonchi or wheezes noted. No increased work of breathing, no retractions or nasal flaring. Abdomen/GI: Soft, non-tender, with normal bowel sounds. No distension or tympany. No guarding or rebound. No evidence of tenderness throughout. MS/ Extremity: Pulses equal, no cyanosis. Neurovascular intact. Full, normal range of motion. Neuro: Awake and alert, GCS 15, oriented to person, place, time, and situation. Cranial nerves II-XII grossly intact. Motor strength 5/5 in all extremities. Sensory grossly intact. Cerebellar exam normal. Normal gait. 15:35 Skin: abscess, that is small, of the right ear lobe, with induration. Vital Signs: 15:19 BP 120 / 87; Pulse 95; Resp 16; Temp 98.3; Pulse Ox 98% ; Weight 65.77 kg; Height 5 ft. ll1 5 in. (165.10 cm); Pain 8/10; 15:19 Body Mass Index 24.13 (65.77 kg, 165.10 cm) ll1 Procedures: 16:10 I \T\ D: Incision and drainage was performed for an abscess of the right ear lobe Prepped kb with Betadine, Anesthetized with 0.5 ml's 1% Lidocaine. Incised with #11 blade. Drained moderate amount purulent fluid. the patient tolerated the procedure well. MDM: 15:21 Patient medically screened. kb 15:35 Data reviewed: vital signs, nurses notes. Data interpreted: Pulse oximetry: on room air kb is 98 %. Interpretation: normal. Counseling: I had a detailed discussion with the patient and/or guardian regarding: the historical points, exam findings, and any diagnostic results supporting the discharge/admit diagnosis, the need for outpatient follow up, a family practitioner, to return to the emergency department if symptoms worsen or persist or if there are any questions or concerns that arise at home. 12/06 15:27 Order name: I\T\D Setup; Complete Time: 15:44 kb Administered Medications: 15:50 Drug: Bactrim (160 mg-800 mg (DS) 1 tablet Route: PO; vg1 18:35 Follow up: Response: No adverse reaction vg1 16:05 Drug: Lidocaine (1 %) 1 vials {Note: Given to Tarah GUPTA for procedure..} Volume: 5 ml; vg1 Route: Infiltration; 16:05 Follow up: Response: No adverse reaction vg1 16:11 Drug: Tylenol 1000 mg Route: PO; vg1 18:35 Follow up: Response: Medication administered at discharge. vg1 16:11 Drug: Ibuprofen 600 mg Route: PO; vg1 18:35 Follow up: Response: Medication administered at discharge. vg1 Disposition: 17:59 Co-signature as Attending Physician, Daniela Valverde MD. ma2 Disposition: 12/07/19 16:11 Discharged to Home. Impression: Cutaneous abscess of head [any part, except face] - right ear lobe. - Condition is Stable. - Discharge Instructions: Skin Abscess, [id number], Incision and Drainage, Care After. - Prescriptions for Bactrim DS 800- 160 mg Oral Tablet - take 1 tablet by ORAL route every 12 hours for 7 days; 14 tablet. - Medication Reconciliation Form, Thank You Letter, Antibiotic Education, Prescription Opioid Use form. - Follow up: Emergency Department; When: As needed; Reason: Worsening of condition. Follow up: Private Physician; When: 2 - 3 days; Reason: Recheck today's complaints, Continuance of care, Re-evaluation by your physician. Signatures: Tarah Way, MARY-C Daniela Seo MD MD ma2 Luh Carroll RN RN vg1 Yvette Sullivan RN RN ll1 Corrections: (The following items were deleted from the chart) 16:24 16:11 12/07/2019 16:11 Discharged to Home. Impression: Cutaneous abscess of head [any vg1 part, except face] - right ear lobe. Condition is Stable. Discharge Instructions: Skin Abscess, [id number], Incision and Drainage, Care After. Prescriptions for Bactrim DS 800-160 mg Oral Tablet - take 1 tablet by ORAL route every 12 hours for 7 days; 14 tablet. and Forms are Medication Reconciliation Form, Thank You Letter, Antibiotic Education, Prescription Opioid Use. Follow up: Emergency Department; When: As needed; Reason: Worsening of condition. Follow up: Private Physician; When: 2 - 3 days; Reason: Recheck today's complaints, Continuance of care, Re-evaluation by your physician. kb
[2019-12-07] MEDS ORDERED: IBUPROFEN 200 MG TAB PO ONE (16:13)
[2019-12-07] MEDS ORDERED: ACETAMINOPHEN 500 MG TAB ONE (16:13)
[2019-12-07 16:29] VITALS: BP 120/87; TEMP 98.3; O2SAT 98
== END 2019-12-07 16:24 | disposition home or self-care (01) ==
LOC: ER 15:13
PROC: 0H92XZZ Drainage of Right Ear Skin, External Approach (ICD-10-PCS; principal; 2019-12-07)
DX: H60.01 Abscess of right external ear (principal)
CPT/HCPCS: 99283

== ENCOUNTER 2020-07-18 19:58 | Emergency (ER) | payer SELFPAY ==
[2020-07-18 20:39] LABS: Basophils % 0.5 % (0-1.3); Hematocrit 39.2 % (36.0-45.0); Lymphocytes % 11.5 % (15.3-44.8); MPV 9.3 fL (7.6-11.3); RBC Red Blood Cell Count 4.74 M/uL (3.86-4.86)
[2020-07-18] MEDS ORDERED: NA CHLORIDE 0.9% 1,000 ML ONE ×2 (20:44→22:01)
[2020-07-18] MEDS ORDERED: ONDANSETRON 4 MG/2 ML VIAL ONE ×2 (20:44→22:01)
[2020-07-18 21:04] LABS: Urine Blood Trace-intact (Negative); Urine Glucose Negative (Negative); Urine Protein 2+ (Negative); Urine Specific Gravity >=1.030 (1.005-1.030)
[2020-07-18 21:06] LABS: ALT/SGPT 24 U/L (12-78); AST/SGOT 14 U/L (15-37); Albumin 4.4 g/dL (3.4-5.0); Alkaline Phosphatase 43 U/L (45-117); BUN Blood Urea Nitrogen 13 mg/dL (7-18); Bicarbonate 25 mmol/L (21-32); Bilirubin Direct < 0.1 mg/dL (0-0.2); Bilirubin Total 0.4 mg/dL (0.2-1.0); Glucose Level 122 mg/dL (74-106); Lipase 101 U/L (73-393); Potassium 3.8 mmol/L (3.5-5.1); Protein, Total 8.3 g/dL (6.4-8.2); Sodium Level 139 mmol/L (136-145)
[2020-07-18 22:04] LABS: Blood Morphology Comment NOT SEEN (NOT SEEN); Platelet Estimate ADEQ; White Blood Cell Scan OK (OK)
[2020-07-18 22:10] LABS: Urine Specific Gravity/Preg >1.030 (1.005-1.030)
--- NOTE | 2020-07-18 22:56 | EDPHYS ---
Physician Documentation [facility] Name: Ayanna Pierre Age: 30 yrs Sex: Female : 1990 Arrival Date: 07/18/2020 Time: 20:00 Bed 7 Private MD: ED Physician Michael Quiroz HPI: 07/18 21:36 This 30 yrs old Female presents to ER via Ambulatory with complaints of dori Vomiting, Nausea, Congestion. 21:36 The patient presents to the emergency department with nausea, vomiting, that is dori continuous. Onset: The symptoms/episode began/occurred this morning. Possible causes: unknown. The symptoms are aggravated by nothing. The symptoms are alleviated by food . Associated signs and symptoms: Pertinent positives: abdominal pain, nausea, vomiting. Severity of symptoms: At their worst the symptoms were mild in the emergency department the symptoms are unchanged. The patient has not experienced similar symptoms in the past. 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 - Social history:: Smoking status: unknown. ROS: 21:38 Constitutional: Negative for fever, chills, and weight loss, Eyes: Negative for injury, dori pain, redness, and discharge, ENT: Negative for injury, pain, and discharge, Neck: Negative for injury, pain, and swelling, Cardiovascular: Negative for chest pain, palpitations, and edema, Respiratory: Negative for shortness of breath, cough, wheezing, and pleuritic chest pain, Back: Negative for injury and pain, : Negative for injury, bleeding, discharge, and swelling, MS/Extremity: Negative for injury and deformity, Skin: Negative for injury, rash, and discoloration, Neuro: Negative for headache, weakness, numbness, tingling, and seizure, Psych: Negative for depression, anxiety, suicide ideation, homicidal ideation, and hallucinations, Allergy/Immunology: Negative for hives, rash, and allergies, Endocrine: Negative for neck swelling, polydipsia, polyuria, polyphagia, and marked weight changes, Hematologic/Lymphatic: Negative for swollen nodes, abnormal bleeding, and unusual bruising. 21:38 Abdomen/GI: Positive for abdominal pain, nausea and vomiting, abdominal cramps. Exam: 21:38 Constitutional: This is a well developed, well nourished patient who is awake, alert, dori and in no acute distress. Head/Face: Normocephalic, atraumatic. Eyes: Pupils equal round and reactive to light, extra-ocular motions intact. Lids and lashes normal. Conjunctiva and sclera are non-icteric and not injected. Cornea within normal limits. Periorbital areas with no swelling, redness, or edema. ENT: Nares patent. No nasal discharge, no septal abnormalities noted. Tympanic membranes are normal and external auditory canals are clear. Oropharynx with no redness, swelling, or masses, exudates, or evidence of obstruction, uvula midline. Mucous membranes moist. Neck: Trachea midline, no thyromegaly or masses palpated, and no cervical lymphadenopathy. Supple, full range of motion without nuchal rigidity, or vertebral point tenderness. No Meningismus. Chest/axilla: Normal chest wall appearance and motion. Nontender with no deformity. No lesions are appreciated. Cardiovascular: Regular rate and rhythm with a normal S1 and S2. No gallops, murmurs, or rubs. Normal PMI, no JVD. No pulse deficits. Respiratory: Lungs have equal breath sounds bilaterally, clear to auscultation and percussion. No rales, rhonchi or wheezes noted. No increased work of breathing, no retractions or nasal flaring. Back: No spinal tenderness. No costovertebral tenderness. Full range of motion. Skin: Warm, dry with normal turgor. Normal color with no rashes, no lesions, and no evidence of cellulitis. MS/ Extremity: Pulses equal, no cyanosis. Neurovascular intact. Full, normal range of motion. Neuro: Awake and alert, GCS 15, oriented to person, place, time, and situation. Cranial nerves II-XII grossly intact. Motor strength 5/5 in all extremities. Sensory grossly intact. Cerebellar exam normal. Normal gait. Psych: Awake, alert, with orientation to person, place and time. Behavior, mood, and affect are within normal limits. 21:38 Abdomen/GI: Inspection: abdomen appears normal, Bowel sounds: normal, Palpation: mild abdominal tenderness, in the right upper quadrant, left upper quadrant, right lower quadrant and left lower quadrant, Liver: no appreciated palpable abnormalities, Hernia: not appreciated. Vital Signs: 20:09 BP 123 / ???; ak2 20:09 BP 123 / 71; Pulse 113; Resp 20; Temp 98.9(O); Pulse Ox 100% ; Weight 65.77 kg; Height ak2 5 ft. 5 in. (165.10 cm); 21:05 BP 115 / 55; Pulse 78; Resp 16 S; Pulse Ox 97% on R/A; ad5 22:01 BP 110 / 77; Pulse 83; Resp 16 S; Pulse Ox 97% on R/A; ad5 20:09 Body Mass Index 24.13 (65.77 kg, 165.10 cm) ak2 MDM: 20:20 Patient medically screened. [facility] 21:39 Differential diagnosis: Nonspecific abd pain, gastritis, cholecystitis, pancreatitis, dori appendicitis, viral gastroenteritis, gastroenteritis. Data reviewed: vital signs, nurses notes, lab test result(s). Data interpreted: doubler operator: rate is 78 beats/min, rhythm is regular, Pulse oximetry: on room air is 97 %. Counseling: I had a detailed discussion with the patient and/or guardian regarding: the historical points, exam findings, and any diagnostic results supporting the discharge/admit diagnosis, lab results, radiology results. 07/18 20:20 Order name: Basic Metabolic Panel; Complete Time: 21:40 [facility] 07/18 20:20 Order name: CBC with Diff; Complete Time: 22:53 [facility] 07/18 20:20 Order name: Hepatic Function; Complete Time: 21:40 [facility] 07/18 20:20 Order name: Lipase; Complete Time: 21:40 [facility] 07/18 20:20 Order name: Flu; Complete Time: 22:53 [facility] 07/18 20:20 Order name: Urine Culture [facility] 07/18 21:03 Order name: Urine Dipstick-Ancillary; Complete Time: 21:40 EDPR 07/18 21:04 Order name: Urine --Ancillary (enter results); Complete Time: 22:53 ar5 07/18 21:36 Order name: Tegretol Level [facility] 07/18 21:37 Order name: Carbamazepine (Tegretol) Level; Complete Time: 22:53 EDPR 07/18 22:01 Order name: SARS-COV-2 RT PCR; Complete Time: 22:53 EDPR 07/18 22:04 Order name: CBC Smear Scan; Complete Time: 22:53 [facility] 07/18 20:20 Order name: IV Saline Lock; Complete Time: 20:23 [facility] 07/18 20:20 Order name: Labs collected and sent; Complete Time: 20:23 [facility] 07/18 20:20 Order name: Urine Dipstick-Ancillary (obtain specimen); Complete Time: 21:03 [facility] 07/18 20:20 Order name: Urine Test (obtain specimen); Complete Time: 21:03 [facility] Administered Medications: 20:28 Drug: NS 0.9% 1000 ml Route: IV; Rate: 1 bolus; Site: right wrist; ad5 21:45 Follow up: IV Status: Completed infusion; IV Intake: 1000ml ad5 20:30 Drug: Zofran (Ondansetron) 4 mg Route: IVP; Site: right wrist; ad5 20:57 Follow up: Response: No adverse reaction; Nausea is decreased; Vomiting decreased ad5 21:44 Drug: NS 0.9% 1000 ml Route: IV; Rate: 1 bolus; Site: right wrist; ad5 23:04 Follow up: IV Status: Completed infusion; IV Intake: 1000ml ad5 21:44 Drug: Zofran (Ondansetron) 4 mg Route: IVP; Site: right wrist; ad5 22:02 Follow up: Response: No adverse reaction; Nausea is decreased ad5 21:44 CANCELLED (Duplicate Order): Zofran (Ondansetron) 4 mg IVP once; over 2 minutes ad5 23:04 Drug: TEGretol (carbamazepine) 200 mg Route: PO; ad5 Disposition: 07/18/20 22:55 Discharged to Home. Impression: Vomiting, Nausea, Acute upper respiratory infection, unspecified. - Condition is Stable. - Discharge Instructions: Nausea and Vomiting, Adult, Nausea, Adult, Nausea and Vomiting, Adult, Oooj-[id number]-Pvjo. - Prescriptions for Pepcid 20 mg Oral Tablet - take 1 tablet by ORAL route every 12 hours for 10 days; 20 tablet. Zofran 4 mg Oral Tablet - take 1 tablet by ORAL route every 12 hours As needed; 20 tablet. Phenergan 25 mg Rectal Suppository - insert 1 suppository by RECTAL route every 6 hours As needed for intractable vomiting; 12 suppository. - Medication Reconciliation Form, Thank You Letter, Antibiotic Education, Prescription Opioid Use, Work release form form. - Follow up: Private Physician; When: 2 - 3 days; Reason: Recheck today's complaints, Continuance of care, Re-evaluation by your physician. Follow up: Emy Olguin; When: 2 - 3 days; Reason: Recheck today's complaints, Re-evaluation by your physician. - Problem is new. - Symptoms have improved. Signatures: Dispatcher [employer] EDPR Michael Quiroz MD MD cha Davidson, Tyrone ad5 Jenn, Kris ak2 Corrections: (The following items were deleted from the chart) 20:55 20:20 CORONAVIRUS+MR.LAB.BRZ ordered. EDPR EDMS 21:44 21:44 Zofran (Ondansetron) 4 mg IVP once; over 2 minutes ordered. ad5 ad5 23:05 22:55 07/18/2020 22:55 Discharged to Home. Impression: Vomiting; Nausea; Acute upper ad5 respiratory infection, unspecified. Condition is Stable. Discharge Instructions: Nausea and Vomiting, Adult, Nausea, Adult, Nausea and Vomiting, Adult, [id number]. Prescriptions for Pepcid 20 mg Oral Tablet - take 1 tablet by ORAL route every 12 hours for 10 days; 20 tablet, Zofran 4 mg Oral Tablet - take 1 tablet by ORAL route every 12 hours As needed; 20 tablet, Phenergan 25 mg Rectal Suppository - insert 1 suppository by RECTAL route every 6 hours As needed for intractable vomiting; 12 suppository. and Forms are Medication Reconciliation Form, Thank You Letter, Antibiotic Education, Prescription Opioid Use. Follow up: Private Physician; When: 2 - 3 days; Reason: Recheck today's complaints, Continuance of care, Re-evaluation by your physician. Follow up: Emy Olguin; When: 2 - 3 days; Reason: Recheck today's complaints, Re-evaluation by your physician. Problem is new. Symptoms have improved. dori
--- NOTE | 2020-07-18 22:56 | ER ---
Nurse's Notes [facility] Name: Ayanna Pierre Age: 30 yrs Sex: Female : 1990 Arrival Date: 07/18/2020 Time: 20:00 Bed 7 Private MD: Diagnosis: Vomiting;Nausea;Acute upper respiratory infection, unspecified Presentation: 07/18 20:09 Chief complaint: Patient states: abd pain along with n/v x1 day. Coronavirus screen: ak2 Client denies travel out of the [place] in the last 14 days. Ebola Screen: Patient negative for fever greater than or equal to 101.5 degrees Fahrenheit, and additional compatible Ebola Virus Disease symptoms Patient denies exposure to infectious person. Patient denies travel to an Ebola-affected area in the 21 days before illness onset. No symptoms or risks identified at this time. Initial Sepsis Screen: Does the patient meet any 2 criteria? No. Patient's initial sepsis screen is negative. Does the patient have a suspected source of infection? No. Patient's initial sepsis screen is negative. Risk Assessment: Do you want to hurt yourself or someone else? Patient reports no desire to harm self or others. Onset of symptoms was July 17, 2020. 20:09 Method Of Arrival: Ambulatory ak2 20:09 Acuity: ELLEN 3 ak2 Triage Assessment: 20:10 General: Appears in no apparent distress. Behavior is calm, cooperative. Pain: ak2 Complains of pain in abdomen. GI: Reports nausea, vomiting. 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 - Social history:: Smoking status: unknown. Screenin:22 Abuse screen: Denies threats or abuse. Denies injuries from another. Nutritional ad5 screening: No deficits noted. Tuberculosis screening: No symptoms or risk factors identified. Fall Risk None identified. Assessment: 20:20 General: Appears ill, Behavior is calm, cooperative, appropriate for age. Pain: ad5 Complains of pain in abdomen. Neuro: Level of Consciousness is awake, alert, obeys commands, Oriented to person, place, time, situation, Appropriate for age. Cardiovascular: No deficits noted. Heart tones present Capillary refill < 3 seconds Patient's skin is warm and dry. Rhythm is regular. Respiratory: No deficits noted. Airway is patent Respiratory effort is even, unlabored, Respiratory pattern is regular, symmetrical. GI: Abdomen is flat, Bowel sounds present X 4 quads. Reports intolerance of fluids, intolerance of food, nausea, vomiting, Pt reports n/v since last pm, denies blood in emesis. Denies changes in bowel or urinary habits. Pt reports generalized abd pain and unable to tolerate po at home. : No deficits noted. No signs and/or symptoms were reported regarding the genitourinary system. EENT: No deficits noted. No signs and/or symptoms were reported regarding the EENT system. Derm: No deficits noted. No signs and/or symptoms reported regarding the dermatologic system. Skin is pink, warm \T\ dry. Musculoskeletal: No deficits noted. No signs and/or symptoms reported regarding the musculoskeletal system. 20:34 Reassessment: Pt with active vomiting at this time, will obtained ordered flu/Covid ad5 swabs once s/s have improved after Zofran administration. 21:05 Reassessment: Patient appears in no apparent distress at this time. Patient is alert, ad5 oriented x 3, equal unlabored respirations, skin warm/dry/pink. Patient states symptoms have improved. 22:01 Reassessment: Patient appears in no apparent distress at this time. Patient and/or ad5 family updated on plan of care and expected duration. Pain level reassessed. Patient is alert, oriented x 3, equal unlabored respirations, skin warm/dry/pink. 23:03 Reassessment: Patient appears in no apparent distress at this time. Patient states ad5 symptoms have improved. Vital Signs: 20:09 BP 123 / ???; ak2 20:09 BP 123 / 71; Pulse 113; Resp 20; Temp 98.9(O); Pulse Ox 100% ; Weight 65.77 kg; Height ak2 5 ft. 5 in. (165.10 cm); 21:05 BP 115 / 55; Pulse 78; Resp 16 S; Pulse Ox 97% on R/A; ad5 22:01 BP 110 / 77; Pulse 83; Resp 16 S; Pulse Ox 97% on R/A; ad5 20:09 Body Mass Index 24.13 (65.77 kg, 165.10 cm) ak2 ED Course: 20:00 Patient arrived in ED. cf2 20:10 Triage completed. ak2 20:13 Tyrone Garcia is Primary Nurse. ad5 20:17 Michael Quiroz MD is Attending Physician. dori 20:19 Inserted saline lock: 20 gauge in right wrist, using aseptic technique. ad5 20:19 Patient has correct armband on for positive identification. Placed in gown. Bed in low ad5 position. Call light in reach. Side rails up X 1. Adult w/ patient. Pulse ox on. NIBP on. Door closed. Noise minimized. Warm blanket given. Pillow given. 22:54 Emy Olguin MD is Referral Physician. dori 23:04 No provider procedures requiring assistance completed. IV discontinued, intact, ad5 bleeding controlled, No redness/swelling at site. Pressure dressing applied. Administered Medications: 20:28 Drug: NS 0.9% 1000 ml Route: IV; Rate: 1 bolus; Site: right wrist; ad5 21:45 Follow up: IV Status: Completed infusion; IV Intake: 1000ml ad5 20:30 Drug: Zofran (Ondansetron) 4 mg Route: IVP; Site: right wrist; ad5 20:57 Follow up: Response: No adverse reaction; Nausea is decreased; Vomiting decreased ad5 21:44 Drug: NS 0.9% 1000 ml Route: IV; Rate: 1 bolus; Site: right wrist; ad5 23:04 Follow up: IV Status: Completed infusion; IV Intake: 1000ml ad5 21:44 Drug: Zofran (Ondansetron) 4 mg Route: IVP; Site: right wrist; ad5 22:02 Follow up: Response: No adverse reaction; Nausea is decreased ad5 21:44 CANCELLED (Duplicate Order): Zofran (Ondansetron) 4 mg IVP once; over 2 minutes ad5 23:04 Drug: TEGretol (carbamazepine) 200 mg Route: PO; ad5 Intake: 21:45 IV: 1000ml; Total: 1000ml. ad5 23:04 IV: 1000ml; Total: 2000ml. ad5 Outcome: 22:55 Discharge ordered by . dori 23:04 Discharged to home ambulatory, with significant other. ad5 23:04 Condition: stable 23:04 Discharge instructions given to patient, Instructed on discharge instructions, follow up and referral plans. medication usage, Demonstrated understanding of instructions, follow-up care, medications, Prescriptions given X 3. 23:05 Patient left the ED. ad5 Signatures: Michael Quiroz MD MD cha Frazier, [place] cf2 Tyrone Garcia ad5 Kris Barajas ks2
[2020-07-18] MEDS ORDERED: carBAMazepine 200 MG TAB ONE (23:17)
[2020-07-18 23:23] VITALS: TEMP 98.9; O2SAT 97
[2020-07-18 23:24] VITALS: BP 110/77
== END 2020-07-18 23:05 | disposition home or self-care (01) ==
LOC: ER 19:58
DX: J06.9 Acute upper respiratory infection, unspecified (principal); Z20.822 Contact with and (suspected) exposure to COVID-19
CPT/HCPCS: 36415; 80048; 80076; 80156; 81003; 81025; 83690; 85025; 87086; 87088; 87804; 96361; 96374; 99284; J2405; J7030; U0003

== ENCOUNTER 2022-06-29 18:45 | Emergency (ER) | payer OTHER, SELFPAY ==
--- OUTSIDE RECORDS SUMMARY | 2022-06-29 18:48 | XMS REPORT | Continuity of Care Document ---
:1990 Author Organization [facility] t Address [address] [place] [address] [place] [id number] Care Team Providers Name Role Phone Ghulam Martinez Primary Care Physician [facility]_A Attending Clinician Unavailable Kizzy Sim Attending Clinician KIZZY BEST Attending Clinician Unavailable Doctor Unassigned, [place] Attending Clinician Unavailable [facility]_A Admitting Clinician Unavailable Payers Payer Name Policy Type Policy Number Effective Date Expiration Date Formerly [facility] [id number] 2022 CHOICE (HMO) 00:00:00 Problems Condition Condition Condition Status Onset Resolution Last Treating Co mments Source Name Details Category Date Date Treatment Clinician Date Mixed Mixed Problem Active 0 [facility] anxiety Anxiety 4-19 Medical and and 00:00: depressive Depressive 00 disorder Disorder Borderline Borderline Problem Active 0 [facility] personalit Personalit 4-19 Me dical y disorder y Disorder 00:00: 00 Posttrauma Posttrauma Problem Active 2022-0 [facility] tic stress tic Stress 4-19 Me dical disorder Disorder 00:00: 00 Allergies, Adverse Reactions, Alerts Allergy Allergy Status Severity Reaction(s) Onset Inactive Treating Comm ents Source Name Type Date Date Clinician NO KNOWN Drug Active Univers ALLERGIE Class ity of S [facility] Social History Social Habit Start Date Stop Date Quantity Comments Source History of Smokes tobacco University of tobacco use daily [facility] Exposure to 2022-04-06 2022-04-16 Not sure University of SARS-CoV-2 00:00:00 09:57:00 [facility] (event) Branch Tobacco use and 2022-04-16 2022-04-16 User of smokeless Un iversity of exposure 00:00:00 00:00:00 tobacco [facility] Sex Ass[birth year] Universit y of 00:00:00 00:00:00 [facility] Smoking Status Start Date Stop Date Source Tobacco smoking consumption Univ ersity [facility] unknown Branch Smokes tobacco daily 2022-04-16 00:00:00 Univers ity [facility] Medications Ordered Filled Start Stop Current Ordering Indication Dosage Frequency Signature Comments Components Source Medication Medication Date Date Medication? Clinician (SIG) Name Name zolpidem 10 Yes 10mg Take 1 Univ ers mg tablet 3-08 tablet by ity o f 10:15: mouth. [address] zolpidem 10 Yes 10mg Take 1 Univ ers mg tablet 3-08 tablet by ity o f 10:15: mouth. [address] ALPRAZolam Yes 1mg Take 1 Unive rs 1 mg tablet 3-08 tablet by ity of 10:13: mouth. [address] dextroamphe Yes Take by Uni vers tamine-amph 3-08 mouth. ity of etamine 10 10:13: [place] mg tablet [address] [place] [address] ALPRAZolam Yes 1mg Take 1 Unive rs 1 mg tablet 3-08 tablet by ity of 10:13: mouth. [address] dextroamphe Yes Take by Uni vers tamine-amph 3-08 mouth. ity of etamine 10 10:13: [place] mg tablet 18 [facility] carBAMazepi Yes Univer s ne 200 mg 3-04 ity of tablet 00:00: [facility] escitalopra 2022-0 Yes Univer s m oxalate 5 3-04 ity of mg tablet 00:00: [facility] carBAMazepi 0 Yes Univer s ne 200 mg 3-04 ity of tablet 00:00: [address] [place] [address] escitalopra 2022-0 Yes Univer s m oxalate 5 3-04 ity of mg tablet 00:00: [address] [place] [address] Lexapro 5 Lexapro 5 No 1 Q1D Lexapro 5 [facility] mg tablet mg tablet mg tablet Medical Take 1 Take 1 Take 1 tablet tablet tablet every day every day every day by oral by oral by oral route. route. route. risperidone risperidone No 1 BID risperidon [facility] 3 mg tablet 3 mg tablet e 3 mg Medical Take 1 Take 1 tablet tablet tablet Take 1 twice a day twice a day tablet by oral by oral twice a route. route. day by oral route. Seroquel Seroquel No Seroquel [facility] via 400 in the 400 in the 400 in the Medical AM and 100 AM and 100 AM and 100 PM PM PM Suboxone Suboxone No Suboxone [facility] via Medical Tegretol Tegretol No Tegretol [facility] via Medical Vital Signs Vital Name Observation Time Observation Value Comments Source BP Diastolic 2022-05-28 00:00:00 95 mm[Hg] [facility] edical Height 2022-05-28 00:00:00 65.5 [in_i] [facility] BMI (Body Mass 2022-05-28 00:00:00 27.3 kg/m2 [facility] Index) BP Systolic 2022-05-28 00:00:00 132 mm[Hg] [facility] Body Weight 2022-05-28 00:00:00 2668.8 [oz_av] [facility] Systolic blood 2022-04-16 16:01:00 117 mm[Hg] [facility] Branch Diastolic blood 2022-04-16 16:01:00 83 mm[Hg] [facility] Heart rate 2022-04-16 16:01:00 77 /min [facility] Body height 2022-04-16 16:01:00 166.4 cm [facility] Body weight 2022-04-16 16:01:00 75.569 kg [facility] BMI 2022-04-16 16:01:00 27.30 kg/m2 [facility] Oxygen saturation 2022-04-16 16:01:00 98 /min [facility] in Arterial blood Medical Br anch by Pulse oximetry Procedures Procedure Date / Time Performed Performing Clinician [facility] e ASSIGNMENT OF BENEFITS 2022-04-16 15:58:41 Doctor Unassigned, No [facility] Branch REFERRAL- Doctor Unassigned, No [facility] REQUEST/RESPONSE Name [facility] Encounters Start End Encounter Admission Attending Care Care Encounter Source Date/Time Date/Time Type Type Clinicians Facility Department ID 2022-05-29 2022-05-29 Outpatient [facility] PRIV PRIV [id number] [facility] 00:00:00 00:00:00 _A [id number] Medica l 2022-05-28 2022-05-28 Outpatient [facility] PRIV PRIV [id number] [facility] 00:00:00 00:00:00 _A [id number] Medica l 2022-05-28 2022-05-28 Alex [facility] [id number] [facility] 00:00:00 00:00:00 r Health - Medic al Lujan, [facility] DO: [facility] [address], [place] [address] , Ph. 2022-05-27 2022-05-27 Outpatient [facility] PRIV PRIV [id number] [facility] 00:00:00 00:00:00 _A [id number] Medica l 2022-04-16 2022-04-16 Office Edith, RUST [id number] Univers 10:00:00 10:30:00 Visit Kizzy A [facility] [id number] i ty [facility] [id number] Dev as TONJA?BLEA [phone] Nm carla [address] MEDICAL OFFICE BUILDING 2022-04-16 2022-04-16 Outpatient R [facility] [id number] Univers 10:00:00 10:00:00 KIZZY frye [facility] 2022-04-16 2022-04-16 Orders Doctor HOPE [id number] Univers 00:00:00 00:00:00 Only Unassigned, ASHLYN [id number] [facility] [id number] Dev as [phone] [address] Orders Doctor JAYY [id number] Univers 00:00:00 00:00:00 Only Unassigned, ASHLYN [id number] ity of [place] [facility] [id number] Dev as [phone] [facility] 009 Branch Results This patient has no known results.
[2022-06-29 19:52] LABS: Specific Gravity < 1.005 (1.005-1.030); Urine Bacteria None Seen /HPF (<20); Urine Bilirubin NEGATIVE (Negative); Urine Blood Negative (Negative); Urine Clarity Clear (Clear); Urine Color Colorless (Yellow); Urine Glucose NEGATIVE (Negative); Urine Protein NEGATIVE (Negative); Urine RBC <5 /HPF (None Seen); Urine Urobilinogen Normal (Normal)
[2022-06-29 20:18] LABS: Specific Gravity < 1.005 (1.005-1.030)
[2022-06-29 21:09] LABS: Absolute Lymphocytes (CBC) 2.1 K/uL (0.7-4.9); Hematocrit 35.6 % (36.0-45.0); Lymphocytes % 37.7 % (15.3-44.8); MPV 8.6 fL (7.6-11.3)
[2022-06-29 21:25] LABS: BUN Blood Urea Nitrogen 14 mg/dL (7-18); Bicarbonate 30 mEq/L (21-32); Glomerular Filtration Rate 116 ml/min (=/>90); Glucose Level 117 mg/dL (74-106); Potassium 3.7 mEq/L (3.5-5.1); Sodium Level 134 mEq/L (136-145)
[2022-06-29 21:26] LABS: HCG, Quantitative < 1 mIU/mL (1-3)
--- NOTE | 2022-06-29 21:53 | EDPHYS ---
Physician Documentation [facility] Name: Ayanna Pierre Age: 32 yrs Sex: Female : 1990 Arrival Date: 06/29/2022 Time: 18:45 Bed 23 Private MD: ED Physician Godwin Weinstein HPI: 06/29 22:31 This 32 yrs old Female presents to ER via Ambulatory with complaints of Unknown snw , Abdominal Cramping, Vaginal Bleeding. 22:31 The patient presents with abdominal pain in the lower abdomen. Onset: The snw symptoms/episode began/occurred acutely. The symptoms do not radiate. Associated signs and symptoms: Pertinent positives: vaginal bleeding, menses. The symptoms are described as crampy. Modifying factors: The symptoms are alleviated by nothing. Severity of pain: At its worst the pain was moderate. The patient has experienced similar episodes in the past, hx of IBS. 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 - Social history:: Smoking status: Reported history of juuling and/or vaping. Patient/guardian denies using alcohol, street drugs. ROS: 22:30 Constitutional: Negative for fever, chills, and weight loss, Eyes: Negative for injury, snw pain, redness, and discharge, ENT: Negative for injury, pain, and discharge, Neck: Negative for injury, pain, and swelling, Cardiovascular: Negative for chest pain, palpitations, and edema, Respiratory: Negative for shortness of breath, cough, wheezing, and pleuritic chest pain, Back: Negative for injury and pain, : Negative for injury, bleeding, discharge, and swelling, MS/Extremity: Negative for injury and deformity, Skin: Negative for injury, rash, and discoloration, Neuro: Negative for headache, weakness, numbness, tingling, and seizure, Psych: Negative for depression, anxiety, suicide ideation, homicidal ideation, and hallucinations. 22:30 Abdomen/GI: Positive for abdominal cramps, abdominal distension. Exam: 22:30 Constitutional: This is a well developed, well nourished patient who is awake, alert, snw and in no acute distress. Head/Face: Normocephalic, atraumatic. Eyes: Pupils equal round and reactive to light, extra-ocular motions intact. Lids and lashes normal. Conjunctiva and sclera are non-icteric and not injected. Cornea within normal limits. Periorbital areas with no swelling, redness, or edema. ENT: Nares patent. No nasal discharge, no septal abnormalities noted. Tympanic membranes are normal and external auditory canals are clear. Oropharynx with no redness, swelling, or masses, exudates, or evidence of obstruction, uvula midline. Mucous membranes moist. Neck: Trachea midline, no thyromegaly or masses palpated, and no cervical lymphadenopathy. Supple, full range of motion without nuchal rigidity, or vertebral point tenderness. No Meningismus. Chest/axilla: Normal chest wall appearance and motion. Nontender with no deformity. No lesions are appreciated. Cardiovascular: Regular rate and rhythm with a normal S1 and S2. No gallops, murmurs, or rubs. Normal PMI, no JVD. No pulse deficits. Respiratory: Lungs have equal breath sounds bilaterally, clear to auscultation and percussion. No rales, rhonchi or wheezes noted. No increased work of breathing, no retractions or nasal flaring. Back: No spinal tenderness. No costovertebral tenderness. Full range of motion. Skin: Warm, dry with normal turgor. Normal color with no rashes, no lesions, and no evidence of cellulitis. MS/ Extremity: Pulses equal, no cyanosis. Neurovascular intact. Full, normal range of motion. Neuro: Awake and alert, GCS 15, oriented to person, place, time, and situation. Cranial nerves II-XII grossly intact. Motor strength 5/5 in all extremities. Sensory grossly intact. Cerebellar exam normal. Normal gait. Psych: Awake, alert, with orientation to person, place and time. Behavior, mood, and affect are within normal limits. 22:30 Abdomen/GI: Inspection: gravid appearance, is noted, Bowel sounds: normal, in all quadrants, Palpation: soft, nontender. Vital Signs: 19:25 BP 124 / 86; Pulse 80; Resp 18 S; Temp 97.4(TE); Pulse Ox 99% on R/A; Weight 76.2 kg lg3 (R); Height 5 ft. 5 in. (R); 20:30 BP 124 / 85; Pulse 78; Resp 16 S; Pulse Ox 94% on R/A; ha1 21:15 BP 142 / 81; Pulse 77; Resp 18 S; Pulse Ox 95% on R/A; ha1 19:25 Body Mass Index 27.96 (76.20 kg, 165.1 cm) lg3 MDM: 19:56 Patient medically screened. snw 21:49 Data reviewed: vital signs, nurses notes, lab test result(s). Refusal of service: The snw patient/guardian displays adequate decision making capability and despite a detailed discussion of alternatives, benefits, risks, and consequences refuses: CT Scan. 21:50 ED course: Pt states she feels significantly better and would like to just follow up snw with her Doctor. Pt does not want an IV or a CT scan. She is reassured that she is not and feels like she is okay to go home. Encouraged to return to ED prn worsening, concerns.. 06/29 19:08 Order name: Urine W/Microscopic (UAM); Complete Time: 19:53 snw 06/29 19:08 Order name: PREGU; Complete Time: 20:27 snw 06/29 19:55 Order name: Abo/rh Typing; Complete Time: 21:28 snw 06/29 19:55 Order name: Basic Metabolic Panel; Complete Time: 21:27 snw 06/29 19:55 Order name: CBC with Diff; Complete Time: 21:17 snw 06/29 19:55 Order name: Quantitative Hcg; Complete Time: 21:27 snw 06/29 19:55 Order name: US OB Limited; Complete Time: 21:55 snw 06/29 19:55 Order name: FHT's snw 06/29 19:55 Order name: Labs collected and sent; Complete Time: 20:50 snw 06/29 19:55 Order name: NPO; Complete Time: 20:50 snw Administered Medications: No medications were administered Disposition Summary: 06/29/22 21:52 Discharge Ordered Location: Home snw Condition: Stable snw Diagnosis - Abdominal distension (gaseous) snw Followup: snw - With: Emergency Department - When: As needed - Reason: Worsening of condition Followup: snw - With: Private Physician - When: 1 - 2 days - Reason: Recheck today's complaints, Continuance of care, Re-evaluation by your physician Discharge Instructions: - Discharge Summary Sheet snw - Abdominal Pain, Adult snw - Gas and Gas Pains, Pediatric snw - Abdominal Bloating snw Forms: - Work release form snw - Medication Reconciliation Form snw - Thank You Letter snw - Antibiotic Education snw - Prescription Opioid Use snw Prescriptions: - simethicone 250 mg Oral capsule - take 1 capsule by ORAL route 2 times per day as needed for abdominal snw distention; 20 capsule; Refills: 0, Product Selection Permitted - dicyclomine 20 mg Oral Tablet - take 1 tablet by ORAL route 3 times per day; 21 tablet; Refills: 0, Product snw Selection Permitted Signatures: Dispatcher [employer] EDMS Gabriella Godoy, RADAR AIR TRAFFIC CONTROLLER-C RADAR AIR TRAFFIC CONTROLLER-Csnw Tanisha Shen, RN RN lg3 Corrections: (The following items were deleted from the chart) 20:21 19:56 Test, Urine+UC.LAB.BRZ ordered. EDMS EDMS 22:39 21:28 Abdomen Pelvis W Con+CT.RAD.BRZ ordered. EDMS EDMS
--- NOTE | 2022-06-29 21:53 | RAD REPORT ---
EXAM DESCRIPTION: US - OB Limited - 06/29/2022 9:45 pm CLINICAL HISTORY: ABD CRAMPING, Pelvic pain COMPARISON: <Comparisons> FINDINGS: The uterus is normal size measuring 6.9 x 3.1 x 3.3 cm. There is no IUP visualized. Left ovary measures 2.9 x 1.2 x 2.3 cm. Normal blood flow to the left ovary. The right ovary is obscu red by bowel gas. No pelvic ascites.
--- NOTE | 2022-06-29 21:53 | ER ---
Nurse's Notes [facility] Name: Ayanna Pierre Age: 32 yrs Sex: Female : 1990 Arrival Date: 06/29/2022 Time: 18:45 Bed 23 Private MD: Diagnosis: Abdominal distension (gaseous) Presentation: 06/29 19:25 Chief complaint: Patient states: i haven't had a period in 4 months but i haven't taken lg3 a test because i had my tubes tied 13 years ago. i started having lower abdominal cramping this morning on and off but i also have IBS. Coronavirus screen: Client denies travel out of the [place] in the last 14 days. At this time, the client does not indicate any symptoms associated with coronavirus-19. Ebola Screen: No symptoms or risks identified at this time. Initial Sepsis Screen: Does the patient meet any 2 criteria? No. Patient's initial sepsis screen is negative. Does the patient have a suspected source of infection? No. Patient's initial sepsis screen is negative. Risk Assessment: Do you want to hurt yourself or someone else? Patient reports no desire to harm self or others. Onset of symptoms was June 29, 2022. 19:25 Method Of Arrival: Ambulatory lg3 19:25 Acuity: ELLEN 3 lg3 Triage Assessment: 19:29 General: Appears in no apparent distress. uncomfortable, Behavior is calm, cooperative. lg3 Pain: Complains of pain in right lower quadrant and left lower quadrant. EENT: No deficits noted. No signs and/or symptoms were reported regarding the EENT system. Neuro: No deficits noted. Tracy Agitation-Sedation Scale (RASS): 0 - Alert and Calm Level of Consciousness is awake, alert, obeys commands, Oriented to person, place, time, situation. Cardiovascular: No deficits noted. Denies chest pain, shortness of breath, Capillary refill < 3 seconds Clubbing of nail beds is absent JVD is absent Patient's skin is warm and dry. Respiratory: No deficits noted. Airway is patent Respiratory effort is even, unlabored, Respiratory pattern is regular, symmetrical. GI: Abdomen is round Reports lower abdominal pain, cramping. : No deficits noted. No signs and/or symptoms were reported regarding the genitourinary system. Derm: No deficits noted. No signs and/or symptoms reported regarding the dermatologic system. Skin is intact, is healthy with good turgor, Skin is dry, Skin is normal. Musculoskeletal: No deficits noted. No signs and/or symptoms reported regarding the musculoskeletal system. Circulation, motion, and sensation intact. Range of motion: intact in all extremities. 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 - Social history:: Smoking status: Reported history of juuling and/or vaping. Patient/guardian denies using alcohol, street drugs. Screenin:30 Abuse screen: Denies threats or abuse. Denies injuries from another. Nutritional ha1 screening: No deficits noted. Tuberculosis screening: No symptoms or risk factors identified. Assessment: 19:32 General: Appears comfortable, Behavior is calm, cooperative. Pain: Complains of pain in ha1 left lower quadrant Pain does not radiate. Pain currently is 5 out of 10 on a pain scale. Quality of pain is described as crampy, Alleviated by rest. Neuro: Level of Consciousness is awake, alert, obeys commands, Oriented to person, place, time, situation. Cardiovascular: Patient's skin is warm and dry. Respiratory: Airway is patent Respiratory effort is even, unlabored, Respiratory pattern is regular, symmetrical. Musculoskeletal: Circulation, motion, and sensation intact. Range of motion: intact in all extremities. 20:30 Reassessment: Patient and/or family updated on plan of care and expected duration. Pain ha1 level reassessed. Patient is alert, oriented x 3, equal unlabored respirations, skin warm/dry/pink. awaiting on labs to be collected. pt. refused an IV. 21:30 Reassessment: Patient and/or family updated on plan of care and expected duration. Pain ha1 level reassessed. Patient is alert, oriented x 3, equal unlabored respirations, skin warm/dry/pink. Vital Signs: 19:25 BP 124 / 86; Pulse 80; Resp 18 S; Temp 97.4(TE); Pulse Ox 99% on R/A; Weight 76.2 kg lg3 (R); Height 5 ft. 5 in. (R); 20:30 BP 124 / 85; Pulse 78; Resp 16 S; Pulse Ox 94% on R/A; ha1 21:15 BP 142 / 81; Pulse 77; Resp 18 S; Pulse Ox 95% on R/A; ha1 19:25 Body Mass Index 27.96 (76.20 kg, 165.1 cm) lg3 ED Course: 18:48 Patient arrived in ED. mr 18:57 Gabriella Godoy FNP-C [facility]. snw 18:57 Godwin Weinstein MD is Attending Physician. snw 19:29 Triage completed. lg3 19:29 Arm band placed on right wrist. lg3 19:32 Patient has correct armband on for positive identification. Bed in low position. Call ha1 light in reach. Side rails up X 1. Side rails up X2. 19:43 PREGU Sent. as7 19:43 Urine W/Microscopic (UAM) Sent. as7 20:12 Radha Lewis, RN is Primary Nurse. ha1 20:15 Missed attempt(s): 20 gauge in right forearm. ha1 21:47 US OB Limited In Process Unspecified. EDMS Administered Medications: No medications were administered Outcome: 21:52 Discharge ordered by . snw 22:46 Patient left the ED. kd3 Signatures: Dispatcher [employer] EDMS Gabriella Godoy FNP-C ONLINE AFFILIATE MARKETING MANAGER-[facility] Dolly Madsen, Tanisha, RN RN 3 Marlene Herndon RN JUJU 3 Radha Lewis, JUJU RN [facility] Francesca Hollis as7
[2022-06-29] MEDS ORDERED: DICYCLOMINE HCL 10 MG CAP ONE (22:16)
[2022-06-29] MEDS ORDERED: SIMETHICONE 80 MG TAB ONE (22:16)
[2022-06-29 23:36] VITALS: TEMP 97.4
[2022-06-29 23:42] VITALS: BP 142/81; O2SAT 95
== END 2022-06-29 22:46 | disposition home or self-care (01) ==
LOC: ER 18:45
DX: R14.0 Abdominal distension (gaseous) (principal); F41.9 Anxiety disorder, unspecified; F32.A Depression, unspecified
CPT/HCPCS: 36415; 76815; 80048; 81001; 81025; 84702; 85025; 86900; 86901

== ENCOUNTER 2022-11-29 21:32 | Emergency (ER) | payer OTHER ==
--- OUTSIDE RECORDS SUMMARY | 2022-11-29 21:34 | XMS REPORT | Continuity of Care Document ---
:1990 Author Organization [facility] t Address [address] [place] [address] Care Team Providers Name Role Phone Ghulam Martinez Primary Care Physician [facility]_A Attending Clinician Unavailable Kizzy Sim Attending Clinician KIZZY BEST Attending Clinician Unavailable Doctor Unassigned, [place] Attending Clinician Unavailable [facility]_A Admitting Clinician Unavailable Payers Payer Name Policy Type Policy Number Effective Date Expiration Date [facility] [id number] 2022 CHOICE (HMO) 00:00:00 Problems Condition Condition Condition Status Onset Resolution Last Treating Co mments Source Name Details Category Date Date Treatment Clinician Date Mixed Mixed Problem Active [facility] anxiety Anxiety 4-19 Medical and and [...] Active Univers ALLERGIE Class ity of [facility] Social History Social Habit Start Date Stop Date Quantity Comments Source History of Smokes tobacco University of tobacco use daily [facility] Exposure to 2022-04-06 2022-04-16 Not sure University of SARS-CoV-2 00:00:00 09:57:00 [facility] (event) Branch Tobacco use and 2022-04-16 2022-04-16 User of smokeless Un iversity of exposure 00:00:00 00:00:00 tobacco [facility] Sex Ass[birth year] Universit y of 00:00:00 00:00:00 [facility] Smoking Status Start Date Stop Date Source Tobacco smoking consumption Univ ersity [facility] Branch Smokes tobacco daily 2022-04-16 00:00:00 Univers ity of [facility] Medications Ordered Filled Start Stop Current Ordering Indication Dosage Frequency Signature Comments Components Source Medication Medication Date Date Medication? Clinician (SIG) Name Name zolpidem 10 Yes 10mg Take 1 Univ ers mg tablet 3-08 tablet by ity o f 10:15: mouth. [address] zolpidem 10 Yes 10mg Take 1 Univ ers mg tablet 3-08 tablet by ity o f 10:15: mouth. [address] ALPRAZolam Yes 1mg Take 1 Unive rs 1 mg tablet 3-08 tablet by ity of 10:13: mouth. [address] dextroamphe Yes Take by Uni vers tamine-amph 3-08 mouth. ity of etamine 10 10:13: [place] mg tablet [address] [place] [address] ALPRAZolam Yes 1mg Take 1 Unive rs 1 mg tablet 3-08 tablet by ity of 10:13: mouth. [address] dextroamphe Yes Take by Uni vers tamine-amph 3-08 mouth. ity of etamine 10 10:13: [place] mg tablet 18 [facility] carBAMazepi Yes Univer s ne 200 mg 3-04 ity of tablet 00:00: [address] [place] [address] escitalopra 0 Yes Univer s m oxalate 5 3-04 ity of mg tablet 00:00: [address] [place] [address] carBAMazepi 0 Yes Univer s ne 200 mg 3-04 ity of tablet 00:00: [address] escitalopra 0 Yes Univer s m oxalate 5 3-04 ity of mg tablet 00:00: [address] Lexapro 5 Lexapro 5 No 1 Q1D [...] Source BP Diastolic 2022-05-28 00:00:00 95 [facility] 2022-05-28 00:00:00 65.5 [in_i] [facility] BMI (Body Mass 2022-05-28 00:00:00 27.3 kg/m2 [facility] Index) BP Systolic 2022-05-28 00:00:00 132 mm[Hg] [facility] Body Weight 2022-05-28 00:00:00 2668.8 [oz_av] [facility] Systolic blood 2022-04-16 16:01:00 117 mm[Hg] [facility] pressure [facility] Branch Diastolic blood 2022-04-16 16:01:00 83 mm[Hg] [facility] pressure [facility] Heart rate 2022-04-16 16:01:00 77 /min [facility] Body height 2022-04-16 16:01:00 166.4 cm [facility] Body weight 2022-04-16 16:01:00 75.569 kg [facility] BMI 2022-04-16 16:01:00 27.30 kg/m2 [facility] Oxygen saturation 2022-04-16 16:01:00 98 /min [facility] in Arterial blood Medical Br anch by Pulse oximetry Procedures Procedure Date / Time Performed Performing Clinician [facility] e ASSIGNMENT OF BENEFITS 2022-04-16 15:58:41 Doctor Unassigned, No [facility] Name Medical Branch REFERRAL- Doctor Unassigned, No [facility] REQUEST/RESPONSE Name Medical Branch Encounters Start End Encounter Admission Attending Care Care Encounter Source Date/Time Date/Time Type Type Clinicians Facility Department ID 2022-08-25 2022-08-25 Outpatient [facility] PRIV PRIV [id number] [facility] 00:00:00 00:00:00 _A [id number] Medica l 2022-08-25 2022-08-25 Outpatient [facility] PRIV PRIV [id number] [facility] 00:00:00 00:00:00 _A [id number] Medica l 2022-05-29 2022-05-29 Outpatient [facility] PRIV PRIV [id number] [facility] 00:00:00 00:00:00 _A [id number] Medica l 2022-05-28 2022-05-28 Outpatient [facility] PRIV PRIV [id number] [facility] 00:00:00 00:00:00 _A [id number] Medica l 2022-05-28 2022-05-28 Alex [facility] [id number] [facility] 00:00:00 00:00:00 [facility] Medic gloria Lujan GC_CPC_[place] DO: [id number] [facility] [address], [place] [address] , Ph. 2022-05-27 2022-05-27 Outpatient [facility] PRIV PRIV [id number] [facility] 00:00:00 00:00:00 _A [id number] Medica l 2022-04-16 2022-04-16 Office Edith, [facility] [id number] Univers 10:00:00 10:30:00 Visit Kizzy MORALES [id number] marcelino Vasquez [id number] Dev as TONJA?BLEA [id number] Me carla [address] MEDICAL OFFICE BUILDING 2022-04-16 2022-04-16 Outpatient Shelli BEST [facility] [id number] Univers 10:00:00 10:00:00 KIZZY uday of [facility] 2022-04-16 2022-04-16 Orders Doctor JAYY [id number] Univers 00:00:00 00:00:00 Only Unassigned, ASHLYN [id number] ity of [facility] [id number] Dev as [phone] [place] [address] Branch Orders Doctor JAYY [id number] Univers 00:00:00 00:00:00 Only Unassigned, ASHLYN [id number] ity of [facility] [id number] Dev as [phone] [address] Results This patient has no known results.
[2022-11-29] MEDS ORDERED: IBUPROFEN 200 MG TAB PO ONE (22:12)
[2022-11-29 22:35] LABS: SARS-CoV-2 Antigen Rapid Res Negative (Negative)
--- NOTE | 2022-11-30 | EDPHYS ---
Physician Documentation [facility] Name: Ayanna Pierre Age: 32 yrs Sex: Female : 1990 Arrival Date: 11/29/2022 Time: 21:32 Bed IW10 Private MD: ED Physician Adam Slaughter HPI: 11/29 23:56 This 32 yrs old Female presents to ER via Ambulatory with complaints of Fever. snw 23:56 The patient reports fever, that was measured at 102 degrees Fahrenheit. Onset: The snw symptoms/episode began/occurred acutely. Associated signs and symptoms: Pertinent positives: abdominal pain, swelling, constipation. Severity of symptoms: At their worst the symptoms were moderate. The patient has not recently seen a physician. pt seen in triage, swabbed for viral illnesses, gave instructions for urine collection. Pt stated she would give sample.. 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 - Social history:: Smoking status: Reported history of juuling and/or vaping. Patient uses alcohol, occasionally. ROS: 23:55 Eyes: Negative for injury, pain, redness, and discharge, ENT: Negative for injury, snw pain, and discharge, Neck: Negative for injury, pain, and swelling, Cardiovascular: Negative for chest pain, palpitations, and edema, Respiratory: Negative for shortness of breath, cough, wheezing, and pleuritic chest pain, 23:55 Back: Negative for injury and pain, : Negative for injury, bleeding, discharge, and swelling, MS/Extremity: Negative for injury and deformity, Skin: Negative for injury, rash, and discoloration, Neuro: Negative for headache, weakness, numbness, tingling, and seizure, 23:55 Constitutional: Positive for body aches, fatigue, fever, 23:55 Abdomen/GI: Positive for abdominal pain, constipation, abdominal distension, 23:55 Psych: Positive for concerned for taking T#4 with Methadone, Exam: 23:54 Constitutional: This is a well developed, well nourished patient who is awake, alert, snw and in no acute distress. Head/Face: Normocephalic, atraumatic. Eyes: Pupils equal round and reactive to light, extra-ocular motions intact. Lids and lashes normal. Conjunctiva and sclera are non-icteric and not injected. Cornea within normal limits. Periorbital areas with no swelling, redness, or edema. ENT: Nares patent. No nasal discharge, no septal abnormalities noted. Tympanic membranes are normal and external auditory canals are clear. Oropharynx with no redness, swelling, or masses, exudates, or evidence of obstruction, uvula midline. Mucous membranes moist. Neck: Trachea midline, no thyromegaly or masses palpated, and no cervical lymphadenopathy. Supple, full range of motion without nuchal rigidity, or vertebral point tenderness. No Meningismus. Chest/axilla: Normal chest wall appearance and motion. Nontender with no deformity. No lesions are appreciated. 23:54 Respiratory: Lungs have equal breath sounds bilaterally, clear to auscultation and percussion. No rales, rhonchi or wheezes noted. No increased work of breathing, no retractions or nasal flaring. Back: No spinal tenderness. No costovertebral tenderness. Full range of motion. 23:54 Skin: Warm, dry with normal turgor. Normal color with no rashes, no lesions, and no evidence of cellulitis. MS/ Extremity: Pulses equal, no cyanosis. Neurovascular intact. Full, normal range of motion. Neuro: Awake and alert, GCS 15, oriented to person, place, time, and situation. Cranial nerves II-XII grossly intact. Motor strength 5/5 in all extremities. Sensory grossly intact. Cerebellar exam normal. Normal gait. 23:54 Cardiovascular: Rate: tachycardic, Rhythm: regular, 23:54 Abdomen/GI: Inspection: distension, that is mild, Bowel sounds: normal, Palpation: mild abdominal tenderness, in the left upper quadrant and left lower quadrant, 23:54 Psych: Behavior/mood is pleasant, cooperative, anxious, Oriented to person, place, time, Vital Signs: 21:43 BP 119 / 69; Pulse 134; Resp 19; Temp 101.4; Pulse Ox 96% ; Weight 70.31 kg; Pain 8/10; ap3 21:43 Pain Scale: Adult ap3 MDM: 21:49 Patient medically screened. snw 23:57 Differential diagnosis: viral Infection, bacterial infection. Data reviewed: vital snw signs, nurses notes, lab test result(s), Flu: negative. I considered the following discharge prescriptions or medication management in the emergency department Medications were administered in the Emergency Department. See MAR. Historians other than the Patient: Spouse/Significant Other: Sig other. Care significantly affected by the following Social Determinants of Health: Misuse of alcohol and/or drugs. Counseling: I had a detailed discussion with the patient and/or guardian regarding the need for outpatient follow up, for definitive care. Refusal of service: The patient/guardian displays adequate decision making capability and despite a detailed discussion of alternatives, benefits, risks, and consequences refuses: pt left ED prior to lab completion or vital sign re-evaluation. Special discussion: Based on the history and exam findings, there is no indication for further emergent testing or inpatient evaluation. I discussed with the patient/guardian the need to see the primary care provider for further evaluation of the symptoms. 11/29 21:49 Order name: Flu; Complete Time: 22:44 snw 11/29 21:49 Order name: SARS RAPID; Complete Time: 22:44 snw Administered Medications: 22:02 Drug: Ibuprofen PO 600 mg PO once Route: PO; ap3 11/30 00:19 Follow up: Response: No adverse reaction ap3 Disposition: 00:13 I was immediately available on-site in the Emergency Department for consultation in the hi3 care of the patient. Disposition Summary: 11/29/22 23:59 Discharge Ordered Notes: Location: Home snw Condition: Stable snw Diagnosis - Fever presenting with conditions classified elsewhere snw Followup: snw - With: Emergency Department - When: As needed - Reason: Worsening of condition Followup: snw - With: Private Physician - When: 1 - 2 days - Reason: Recheck today's complaints, Continuance of care, Re-evaluation by your physician Discharge Instructions: - Discharge Summary Sheet snw - Fever, Adult snw Forms: - Medication Reconciliation Form snw - Thank You Letter snw - Antibiotic Education snw - Prescription Opioid Use snw - Patient Portal Instructions snw - Leadership Thank You Letter snw Signatures: Dispatcher [employer] EDGabriella Chang FNP-C PLATER HELPER-[facility] Sheyla Rubin, RN RN ap3 Adam Slaughter DO DO ms3 Corrections: (The following items were deleted from the chart) 00:20 11/29 23:33 Recheck Vital Signs ordered. john ap3
--- NOTE | 2022-11-30 | ER ---
Nurse's Notes [facility] Name: Ayanna Pierre Age: 32 yrs Sex: Female : 1990 Arrival Date: 11/29/2022 Time: 21:32 Bed IW10 Private MD: Diagnosis: Fever presenting with conditions classified elsewhere Presentation: 11/29 21:43 Chief complaint: Patient states: she started having fever today. patient also reports ap3 constipation. patient states she took "some tylenol 4's for the fever". Coronavirus screen: At this time, the client does not indicate any symptoms associated with coronavirus-19. Ebola Screen: No symptoms or risks identified at this time. Initial Sepsis Screen: Does the patient meet any 2 criteria? HR > 90 bpm. Does the patient have a suspected source of infection? No. Patient's initial sepsis screen is negative. Risk Assessment: Do you want to hurt yourself or someone else? Patient reports no desire to harm self or others. Onset of symptoms was November 29, 2022. 21:43 Method Of Arrival: Ambulatory ap3 21:43 Acuity: ELLEN 3 ap3 Triage Assessment: 21:46 General: Appears in no apparent distress. Behavior is cooperative. Pain: Complains of ap3 pain in head. Neuro: Level of Consciousness is awake, alert, obeys commands, Oriented to person, place, time, situation. Cardiovascular: Patient's skin is warm and dry. Respiratory: Airway is patent Respiratory effort is even, unlabored. 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 - Social history:: Smoking status: Reported history of juuling and/or vaping. Patient uses alcohol, occasionally. Screenin:48 [facility] ED Fall Risk Assessment (Adult) History of falling in the last 3 months, ap3 including since admission No falls in past 3 months (0 pts). Abuse screen: Denies threats or abuse. Nutritional screening: No deficits noted. Tuberculosis screening: No symptoms or risk factors identified. Vital Signs: 21:43 BP 119 / 69; Pulse 134; Resp 19; Temp 101.4; Pulse Ox 96% ; Weight 70.31 kg; Pain 8/10; ap3 21:43 Pain Scale: Adult ap3 ED Course: 21:36 Patient arrived in ED. ag3 21:42 Gabriella Godoy FNP-C is [facility]. snw 21:42 Adam Slaughter DO is Attending Physician. snw 21:45 Triage completed. ap3 21:48 Arm band placed on right wrist. ap3 21:48 Patient has correct armband on for positive identification. Adult w/ patient. ap3 22:02 SARS RAPID Sent. ap3 22:02 Flu Sent. ap3 11/30 00:18 No provider procedures requiring assistance completed. Patient did not have IV access ap3 during this emergency room visit. 00:21 Provided Education on: discharge instructions. ap3 Administered Medications: 11/29 22:02 Drug: Ibuprofen PO 600 mg PO once Route: PO; ap3 11/30 00:19 Follow up: Response: No adverse reaction ap3 Medication: 11/29 21:48 VIS not applicable for this client. ap3 Outcome: 23:59 Discharge ordered by . snw 11/30 00:21 Discharged to home with family, ap3 Condition: good Discharge instructions given to patient, Instructed on discharge instructions, follow up and referral plans. Demonstrated understanding of instructions, follow-up care, 00:21 Patient left the ED. ap3 Signatures: Gabriella Godoy FNP-C WAREHOUSE TEAM MEMBER-[facility] Sheyla Rubin RN RN ap3 Gricel Tesfaye ag3 Corrections: (The following items were deleted from the chart) 11/29 21:48 21:43 Chief complaint: Patient states: she started having fever today. patient also ap3 reports constipation. ap3
== END 2022-11-30 00:21 | disposition home or self-care (01) ==
LOC: ER 21:32
DX: R50.9 Fever, unspecified (principal); Z20.822 Contact with and (suspected) exposure to COVID-19; Z87.820 Personal history of traumatic brain injury
CPT/HCPCS: 36415; 87804; 87811; 99283

== ENCOUNTER 2024-03-02 17:42 | Emergency (ER) | payer OTHER ==
--- OUTSIDE RECORDS SUMMARY | 2024-03-02 17:45 | XMS REPORT | Continuity of Care Document ---
Author Name Unknown Address [address] [facility] [address] [place] [address] [facility] thconnect Address [address] [facility] [address] [place] [address] Care Team Providers Care [employer] Lab Technician Name Role Phone DAMONJEFF Gabriella Primary Care Physician Unavaila Jonathan Dumont MD Attending Clinician [phone] LONNY LOCKETT Attending Clinician Unavail able LONNY LOCKETT Attending Clinician Unavail able [facility] Attending Clinician Unavailable Gisella Sim Attending Clinician [phone] GISELLA SHARMA Attending Clinician Unavailable Doctor Unassigned, [place] Attending Clinician U navailable [facility] Admitting Clinician Unavailable Payers Payer Name Policy Type Policy Number Effective Date Expirati on Date Source [facility] [employer] [facility] [id number] 2022 00:00:00 Problems Condition Name Condition Details Condition Category Status Onset Date Resolution Date Last Treatment Date Treating Clinician Comments Source Mixed anxiety and depressive disorder Mixed Anxiety and Depressive Disorder Problem Active 05-28 00:00: 00 [facility] Borderline personalit y disorder Borderline Personalit y Disorder Problem Active - 00:00: 00 [facility] Posttrauma tic stress disorder Posttrauma tic Stress Disorder Problem Active 05-28 00:00: 00 [facility] Allergies, Adverse Reactions, Alerts Allergy Name Allergy Type Status Severity Reaction(s) Onset Date Inactive Date Treating Clinician Comments Source NO KNOWN ALLERGIE S Drug Class Active [facility] Social History Social Habit Start Date Stop Date Quantity Comments Source [facility] of [facility] use Smokes tobacco daily [facility] Exposure to SARS-CoV-2 (event) 2022-04-06 00:00:00 2022-04-16 09:57:00 Not sure [facility] History of Social function 2022-04-16 00:00:00 2022-04-16 00:00:00 [facility] Tobacco use and exposure 2022-04-16 00:00:00 2022-04-16 00:00:00 User of smokeless tobacco [facility] Sex assigned at 1990 00:00:00 1990 00:00:00 [facility] Smoking Status Start Date Stop Date Source Tobacco smoking consumption unknown [facility] Smokes tobacco daily 2022-04-16 00:00:00 [facility] Medications Ordered Medication Name Filled Medication Name Start Date Stop Date Current Medication? Ordering Clinician Indication Dosage Frequency Signature (SIG) Comments Components Source HYDROcodone -acetaminop hen 10-325 mg tablet 08-23 08:04: 02 Yes Take by mouth 4 (four) times daily as needed. [facility] DULoxetine 30 mg capsule 08-23 08:04: 02 Yes 30mg Take 1 capsule by mouth in the morning. [facility] phentermine 37.5 mg tablet 07-27 00:00: 00 Yes TAKE 1 TABLET BY MOUTH EVERY DAY BEFORE BREAKFAST [facility] valACYclovi r 1 gram tablet 07-16 00:00: 00 Yes 1g Take 1 tablet by mouth in the morning and 1 tablet in the evening. [facility] proMETHazin e 25 mg tablet 07-16 00:00: 00 Yes 25mg Take 1 tablet by mouth every 6 (six) hours as needed. [facility] propranoloL 40 mg tablet 06-15 00:00: 00 Yes 40mg Take 1 tablet by mouth in the morning and 1 tablet in the evening. [facility] zolpidem 10 mg tablet 04-16 10:15: 57 Yes 10mg Take 1 tablet by mouth. [facility] ALPRAZolam 1 mg tablet 04-16 10:13: 18 Yes 1mg Take 1 tablet by mouth. [facility] dextroamphe tamine-amph etamine 10 mg tablet 04-16 10:13: 18 Yes Take by mouth. [facility] carBAMazepi ne 200 mg tablet 04-12 00:00: 00 Yes [facility] escitalopra m oxalate 5 mg tablet 04-12 00:00: 00 Yes [facility] Lexapro 5 mg tablet Take 1 tablet every day by oral route. Lexapro 5 mg tablet Take 1 tablet every day by oral route. No 1 Q1D Lexapro 5 mg tablet Take 1 tablet every day by oral route. [facility] risperidone 3 mg tablet Take 1 tablet twice a day by oral route. risperidone 3 mg tablet Take 1 tablet twice a day by oral route. No 1 BID risperidon e 3 mg tablet Take 1 tablet twice a day by oral route. [facility] Seroquel 400 in the AM and 100 PM Seroquel 400 in the AM and 100 PM No Seroquel 400 in the AM and 100 PM [facility] Suboxone Suboxone No Suboxone [facility] Tegretol Tegretol No Tegretol [facility] Vital Signs Vital Name Observation Time Observation Value Comments S ource BP Diastolic 2022-05-28 00:00:00 95 mm[Hg] [facility] Height 2022-05-28 00:00:00 65.5 [in_i] [facility] BMI (Body Mass Index) 2022-05-28 00:00:00 27.3 kg/m2 [facility] BP Systolic 2022-05-28 00:00:00 132 mm[Hg] [facility] Body Weight 2022-05-28 00:00:00 2668.8 [oz_av] [facility] Systolic blood pressure 2022-04-16 16:01:00 117 mm[Hg] [facility] Diastolic blood pressure 2022-04-16 16:01:00 83 mm[Hg] [facility] Heart rate 2022-04-16 16:01:00 77 /min [facility] height 2022-04-16 16:01:00 166.4 cm [facility] Body weight 2022-04-16 16:01:00 75.569 kg [facility] BMI 2022-04-16 16:01:00 27.30 kg/m2 [facility] Oxygen saturation in Arterial blood by Pulse oximetry 2022-04-16 16:01:00 98 /min [facility] Procedures Procedure Date / Time Performed Performing Clinicia n Source ASSIGNMENT OF BENEFITS 2022-04-16 15:58:41 Docto r Unassigned, [place] [facility] REFERRAL- REQUEST/RESPONSE Doctor Unassigned, [place] [facility] Encounters Start Date/Time End Date/Time Encounter Type Admission Type Attending Clinicians Care Facility Care Department Encounter ID Source 2023-08-28 00:00:00 2023-08-28 12:12:19 Letter (Out) Jonathan Wylie [facility] [id number] [facility] 2023-08-24 11:20:00 2023-08-24 11:20:00 Outpatient LONNY WINKLER [facility] [id number] [facility] 2022-08-25 00:00:00 2022-08-25 00:00:00 Outpatient [facility] PRIV PRIV [id number] [facility] 2022-08-25 00:00:00 2022-08-25 00:00:00 Outpatient [facility] PRIV PRIV [id number] [facility] 2022-05-29 00:00:00 2022-05-29 00:00:00 Outpatient [facility] PRIV PRIV [id number] [facility] 2022-05-28 00:00:00 2022-05-28 00:00:00 Outpatient [facility] PRIV PRIV [id number] [facility] 2022-05-28 00:00:00 2022-05-28 00:00:00 Alex Lujan, DO: [facility] [address], [place] [address] , Ph. [facility] [facility] [id number] [facility] 2022-05-27 00:00:00 2022-05-27 00:00:00 Outpatient [facility] [id number] [facility] 2022-04-16 10:00:00 2022-04-16 10:30:00 Office Visit Gisella Sharma [facility] [id number] [facility] 2022-04-16 10:00:00 2022-04-16 10:00:00 Outpatient R GISELLA SHARMA [facility] [id number] [facility] 2022-04-16 00:00:00 2022-04-16 00:00:00 Orders Only Doctor Unassigned, [place] [id number] [facility] Orders Only Doctor Unassigned, [place] [id number] [facility]
--- NOTE | 2024-03-02 18:28 | ER ---
Nurse's Notes [facility] Name: Ayanna Pierre Age: 33 yrs Sex: Female : 1990 Arrival Date: 03/02/2024 Time: 17:42 Bed 8 Private MD: Diagnosis: Medication Refill Presentation: 03/02 18:21 Chief complaint: Patient states: [facility] ER patient - needs refill on 6 medications. ld1 Patient missed last appointment and is "freaking out.". Coronavirus screen: At this time, the client does not indicate any symptoms associated with coronavirus-19. Ebola Screen: No symptoms or risks identified at this time. 18:21 Method Of Arrival: Ambulatory ld1 18:24 Initial Sepsis Screen: Does the patient meet any 2 criteria? No. Patient's initial ld1 sepsis screen is negative. Does the patient have a suspected source of infection? No. Patient's initial sepsis screen is negative. Risk Assessment: Do you want to hurt yourself or someone else? Patient reports no desire to harm self or others. Onset of symptoms was March 02, 2024. 18:24 Acuity: ELLEN 4 ld1 Triage Assessment: 18:24 General: Appears in no apparent distress. comfortable, Behavior is calm, cooperative, ld1 appropriate for age. Pain: Denies pain. EENT: No signs and/or symptoms were reported regarding the EENT system. Neuro: Level of Consciousness is awake, alert, obeys commands, Oriented to person, place, time, situation. Cardiovascular: Capillary refill < 3 seconds Patient's skin is warm and dry. Respiratory: Airway is patent Respiratory effort is even, unlabored. GI: Abdomen is round non-distended. : No signs and/or symptoms were reported regarding the genitourinary system. Derm: No signs and/or symptoms reported regarding the dermatologic system. Musculoskeletal: No signs and/or symptoms reported regarding the musculoskeletal system. Historical: - Allergies: 18:24 No Known Allergies; ld1 - PMHx: 18:24 Anxiety; Depression; Migraines; PTSD; traumatic brain injury; ld1 - PSHx: 18:24 DNC; tubal ligation; ld1 - Immunization history:: Adult Immunizations. - Infectious Disease History:: Denies. - Social history:: Smoking status: Patient denies any tobacco usage or history of. Screenin:40 [facility] ED Fall Risk Assessment (Adult) History of falling in the last 3 months, ph including since admission No falls in past 3 months (0 pts) Confusion or Disorientation No (0 pts) Intoxicated or Sedated No (0 pts) Impaired Gait No (0 pts) Mobility Assist Device Used No (0 pt) Altered Elimination No (0 pt) Score/Fall Risk Level 0 - 2 = Low Risk Oriented to surroundings, Maintained a safe environment, Hourly rounding (assess needs \\T\\ fall precautionary measures) done. Abuse screen: Denies threats or abuse. Denies injuries from another. Nutritional screening: No deficits noted. Tuberculosis screening: No symptoms or risk factors identified. Assessment: 18:22 Reassessment: Patient reports medication list - Lexapro 20mg q daily, Risperidone 2mg, ld1 4mg in afternoon, Tegretol 200mg q daily, Seroquel 400mg morning, 200mg at night. Pain: Denies pain. 18:40 General: Behavior is cooperative, appropriate for age, anxious. Pain: Denies pain. ph Neuro: Level of Consciousness is awake, alert, obeys commands, Oriented to person, place, time, situation. Derm: Skin is pink, warm \\T\\ dry. Vital Signs: 18:21 BP 139 / 93; Pulse 66; Resp 18; Temp 98.1(TE); Pulse Ox 98% on R/A; ld1 ED Course: 17:44 Patient arrived in ED. mr 17:58 Nico Morelos MD is Attending Physician. ec2 18:24 Triage completed. ld1 18:24 Arm band placed on right wrist. ld1 18:26 Gerry Babb, JUJU is Primary Nurse. bp 18:40 Patient has correct armband on for positive identification. Bed in low position. Call ph light in reach. 18:40 No provider procedures requiring assistance completed. Patient did not have IV access ph during this emergency room visit. Administered Medications: 18:39 Drug: RisperDAL PO 4 mg PO once Route: PO; ph 18:39 Follow up: Response: No adverse reaction; Medication administered at discharge. ph 18:39 Drug: carBAMazepine PO 200 mg PO once Route: PO; ph 18:39 Follow up: Response: No adverse reaction; Medication administered at discharge. ph 18:39 Drug: SEROquel PO 200 mg PO once Route: PO; ph 18:40 Follow up: Response: No adverse reaction; Medication administered at discharge. ph Medication: 18:40 VIS not applicable for this client. ph Outcome: 18: Discharge ordered by . ec2 18:41 Discharged to home ambulatory, ph 18:41 Condition: good 18:41 Discharge instructions given to patient, Instructed on discharge instructions, follow up and referral plans. medication usage, Demonstrated understanding of instructions, follow-up care, medications, Prescriptions given X 6 18:41 Patient left the ED. ph Signatures: Dolly Madsen, Reg Reg mr Salma Norman, RN RN ph Gerry Babb RN RN Thao Slaughter RN RN ld1 Nico Morelos MD MD ec2
--- NOTE | 2024-03-02 18:28 | EDPHYS ---
Physician Documentation [facility] Name: Ayanna Pierre Age: 33 yrs Sex: Female : 1990 Arrival Date: 03/02/2024 Time: 17:42 Bed 8 Private MD: ED Physician Nico Morelos HPI: 03/02 18:32 This 33 yrs old Female presents to ER via Ambulatory with complaints of ec2 Medication Refill. 18:32 Patient arrives today for medication refill. Has no other complaints. Has been taking ec2 multiple long-acting antipsychotic medications for her bipolar disease and her depression. Patient reports she last took her medications 1 week ago.. Historical: - Allergies: 18:24 No Known Allergies; ld1 - PMHx: 18:24 Anxiety; Depression; Migraines; PTSD; traumatic brain injury; ld1 - PSHx: 18:24 DNC; tubal ligation; ld1 - Immunization history:: Adult Immunizations. - Infectious Disease History:: Denies. - Social history:: Smoking status: Patient denies any tobacco usage or history of. ROS: 18:32 Constitutional: as per hpi ec2 Exam: 18:32 Constitutional: GEN: NAD Head: atraumatic Eyes: EOMI Ears: External ears are ec2 normal. CV: regular rate LUNGS: no respiratory distress ABD: non-distended SKIN: no evidence of rashes MSK: no evidence of trauma. Psych: Cooperative individual with denies suicidality or homicidality. Vital Signs: 18:21 BP 139 / 93; Pulse 66; Resp 18; Temp 98.1(TE); Pulse Ox 98% on R/A; ld1 MDM: 18:17 Medical Screening Exam initiated ec2 18:32 Data reviewed: vital signs, nurses notes. ED course: Patient arrives today for ec2 evaluation of medication refill. Patient on multiple mood adjusting medications. Will refill medications as directed. These are reasonable doses. Patient is to follow-up with her psychiatrist.. Administered Medications: 18:39 Drug: RisperDAL PO 4 mg PO once Route: PO; ph 18:39 Follow up: Response: No adverse reaction; Medication administered at discharge. ph 18:39 Drug: carBAMazepine PO 200 mg PO once Route: PO; ph 18:39 Follow up: Response: No adverse reaction; Medication administered at discharge. ph 18:39 Drug: SEROquel PO 200 mg PO once Route: PO; ph 18:40 Follow up: Response: No adverse reaction; Medication administered at discharge. ph Disposition Summary: 03/02/24 18:27 Discharge Ordered Notes: Location: Home ec2 Condition: Stable ec2 Diagnosis - Medication Refill ec2 Followup: ec2 - With: Private Physician - When: - Reason: Re-evaluation by your physician Discharge Instructions: - Discharge Summary Sheet ec2 Forms: - Medication Reconciliation Form ec2 - Antibiotic Education ec2 - Prescription Opioid Use ec2 - Patient Portal Instructions ec2 - Leadership Thank You Letter ec2 Prescriptions: - Lexapro 20 mg Oral tablet - take 1 tablet ORAL route daily; 30 tablet; Refills: 0, Product Selection ec2 Permitted - Risperdal 2 mg Oral tablet - take 1 tablet ORAL route every morning; 30 tablet; Refills: 0, Product ec2 Selection Permitted - Risperdal 4 mg Oral tablet - take 1 tablet ORAL route At bedtime; 30 tablet; Refills: 0, Product Selection ec2 Permitted - Seroquel 200 mg Oral tablet - take 1 tablet ORAL route every day at bedtime; 30 tablet; Refills: 0, Product ec2 Selection Permitted - Seroquel 400 mg Oral tablet - take 1 tablet ORAL route daily; 30 tablet; Refills: 0, Product Selection ec2 Permitted - Tegretol 200 mg Oral tablet - take 1 tablet ORAL route every 24 hours; 30 tablet; Refills: 0, Product ec2 Selection Permitted Signatures: Salma Norman RN RN Thao Slaughter RN RN ld1 Nico Morelos MD MD ec2
[2024-03-02] MEDS ORDERED: carBAMazepine 200 MG TAB ONE (18:30)
[2024-03-02] MEDS ORDERED: RISPERIDONE 1 MG TABLET PO ONE (19:00)
[2024-03-02] MEDS ORDERED: QUETIAPINE 100MG TAB PO ONE (19:00)
[2024-03-02 21:51] VITALS: BP 139/93; TEMP 98.1; O2SAT 98
== END 2024-03-02 18:41 | disposition home or self-care (01) ==
LOC: ER 17:42
DX: Z76.0 Encounter for issue of repeat prescription (principal)
CPT/HCPCS: 99283